=== PATIENT | female | born 1995 | race Caucasian/White ===

== ENCOUNTER 2017-06-25 13:09 | Emergency (ER) | payer BC, SELFPAY ==
[2017-06-25 13:17] VITALS: BP 130/61; PULSE 95; RESP 18; TEMP 36.6; O2SAT 100; BMI 21.6
[2017-06-25 13:32] LABS: UTC Influenza A Antigen Negative (Negative); UTC Influenza B Antigen Negative (Negative)
--- NOTE | 2017-06-25 13:50 | HMH.EDUTC ---
[facility] [place]ression: Viral illness Disposition: Home, Self-Care Condition on Discharge: Good Instructions: DI for Viral Upper Respiratory Infection -- Adult, DI for Viral Gastroenteritis -- Adult Additional Instructions: * No sign of bacterial infection. Likely viral. Virus can take 7-14 days to run their course * Monitor Temp. Tylenol every 4 hours as needed no more then 5 times a day or 4000mg in 24 hours and/or ibuprofen every 6 hours as needed no more then 3200mg in 24 hours (as long as your primary care doctor has told you that it is ok to take both) for fever/aches/pain. ER if fever no less than 101 despite tylenol and ibuprofen * Encourage fluids, water, gatorade, powerade, pedialyte if /toddler/child * warm salt water gargles * warm fluids * sore throat lozenges * sleep elevated * humidifier/vaporizer * * Your throat swab was sent for culture. Those results are typically sent to your primary care. Be sure to follow up in 2-3 days if no improvement so they can review those results and treat if necessary. If you don't have primary care, I recommend you get one but in the mean time, you will have to return to a walk in clinic. * Increase fluids. Water, gatorade, powerade, juice OR pedialyte with limited formula/dairy in children. * No food is ok as long as you or your child is drinking. Once ready to eat, start bland. bananas, rice, applesauce, toast * Contagious until no diarrhea, vomiting, fever x 24 hours without medication * Avoid anti-diarrheals unless told otherwise. Best to let the virus run its course. Follow up with primary care IMMEDIATELY for new or worsening symptoms OR no noticeable improvement over the next 48-72 hours. 911 for difficulty breathing or swallowing. Prescriptions: Ondansetron [Zofran 4mg ODT] 4 mg PO TID PRN #10 tab.rapdis PRN Reason: Nausea And Vomiting Time of Disposition: 14:16 Medical Decision Making Vital Signs: 06/25/17 13:17 Temperature 98 F Temperature Source Temporal Artery Scan Pulse Rate [Right] 95 H Respiratory Rate 18 Blood Pressure [Right Arm] 130/61 Blood Pressure Mean [Right Arm] 84 Blood Pressure Source [Right Arm] Automatic Cuff Blood Pressure Position [Right Arm] Sitting 02 Sat by Pulse Oximetry 100 Oxygen Delivery Method Room Air - Lab Data Lab Results 06/25/17 13:31: Influenza Type A Ag Negative, Influenza Type B Ag Negative Strep negative - Rudy Inquiry Pt receiving controlled substance: No [facility] [place] - General Stated complaint: v/d jain Time Seen by Provider: 06/25/17 13:45 Mode of Arrival: Ambulatory Source of Information: Patient Limitations: No Limitations Description of Symptoms (Recalled from Triage Doc. by RN): COUGH, HEADACHE, VOMITING X3 DAYS HEENT Symptoms (Recalled from RN notes): Yes Resp Symptoms (Recalled from RN notes): No Skin Symptoms (Recalled from RN notes): No MS Symptoms (Recalled from RN notes): No Functional Status (Recalled from RN notes): N - History of Present Illness Provider Complaint: c/o sore throat, cough, nasal congestion, rhinorrhea, PND starting 3-4 days ago. This morning N/V/D. Vomited twice and diarrhea twice. Son w/ bronchitis. Pt denies SOA, wheezing. Tylenol helps w/ aches but nothing else. Hasn't taken or tried anything else. - Related Data Previous Rx's Medication Instructions Recorded Ondansetron [Zofran 4mg ODT] 4 mg PO TID PRN #10 tab.rapdis 06/25/17 Allergies Allergy/AdvReac Type Severity Reaction Status Date / Time estradiol [ESTRADIOL] Allergy Unknown Unverified 06/05/17 14:56 ethinyl estradiol Allergy Unknown Unverified 06/05/17 14:56 [From ORTHO EVRA] norelgestromin Allergy Unknown Verified 06/25/17 13:24 [From ORTHO EVRA] - Worker's Comp Is this a Worker's Comp case?: No [facility] History I have reviewed the patient's past medical history: Yes (denies pertinent hx) Medical History: Denies:: Diabetes Mellitus Type 1, Diabetes
--- NOTE | 2017-06-25 13:54 | ED_ITS ---
[facility] [place] Clinical Impression: Viral illness Disposition: Home, Self-Care Condition on Discharge: Good Instructions: DI for Viral Upper Respiratory Infection -- Adult, DI for Viral Gastroenteritis -- Adult Additional Instructions: * No sign of bacterial infection. Likely viral. Virus can take 7-14 days to run their course * Monitor Temp. Tylenol every 4 hours as needed no more then 5 times a day or 4000mg in 24 hours and/or ibuprofen every 6 hours as needed no more then 3200mg in 24 hours (as long as your primary care doctor has told you that it is ok to take both) for fever/aches/pain. ER if fever no less than 101 despite tylenol and ibuprofen * Encourage fluids, water, gatorade, powerade, pedialyte if /toddler/ child * warm salt water gargles * warm fluids * sore throat lozenges * sleep elevated * humidifier/vaporizer * * Your throat swab was sent for culture. Those results are typically sent to your primary care. Be sure to follow up in 2-3 days if no improvement so they can review those results and treat if necessary. If you don't have primary care , I recommend you get one but in the mean time, you will have to return to a walk in clinic. * Increase fluids. Water, gatorade, powerade, juice OR pedialyte with limited formula/dairy in children. * No food is ok as long as you or your child is drinking. Once ready to eat, start bland. bananas, rice, applesauce, toast * Contagious until no diarrhea, vomiting, fever x 24 hours without medication * Avoid anti-diarrheals unless told otherwise. Best to let the virus run its course. Follow up with primary care IMMEDIATELY for new or worsening symptoms OR no noticeable improvement over the next 48-72 hours. 911 for difficulty breathing or swallowing. Prescriptions: Ondansetron [Zofran 4mg ODT] 4 mg PO TID PRN #10 tab.rapdis PRN Reason: Nausea And Vomiting Time of Disposition: 14:16 Medical Decision Making Vital Signs: 06/25/17 13:17 Temperature 98 F Temperature Source Temporal Artery Scan Pulse Rate [Right] 95 H Respiratory Rate 18 Blood Pressure [Right Arm] 130/61 Blood Pressure Mean [Right Arm] 84 Blood Pressure Source [Right Arm] Automatic Cuff Blood Pressure Position [Right Arm] Sitting 02 Sat by Pulse Oximetry 100 Oxygen Delivery Method Room Air - Lab Data Lab Results 06/25/17 13:31: Influenza Type A Ag Negative, Influenza Type B Ag Negative Strep negative - Rudy Inquiry Pt receiving controlled substance: No [facility] [place] HPI - General Stated complaint: v/d jain Time Seen by Provider: 06/25/17 13:45 Mode of Arrival: Ambulatory Source of Information: Patient Limitations: No Limitations Description of Symptoms (Recalled from Triage Doc. by RN): COUGH, HEADACHE, VOMITING X3 DAYS HEENT Symptoms (Recalled from RN notes): Yes Resp Symptoms (Recalled from RN notes): No Skin Symptoms (Recalled from RN notes): No MS Symptoms (Recalled from RN notes): No Functional Status (Recalled from RN notes): N - History of Present Illness Provider Complaint: c/o sore throat, cough, nasal congestion, rhinorrhea, PND starting 3-4 days ago. This morning N/V/D. Vomited twice and diarrhea twice. Son w/ bronchitis. Pt denies SOA, wheezing. Tylenol helps w/ aches but nothing else. Hasn't taken or tried anything else. - Related Data Previous Rx's Medication Instructions Recorded Ondansetron [Zofran 4mg ODT] 4 mg PO TID PRN #10 tab.[email or web address] 06/25/17
[2017-06-25 14:18] LABS: UTC Strep Screen (Rapid) Negative (Negative)
== END 2017-06-25 14:25 | disposition home or self-care (01) ==
PROVIDERS: Nurse Practitioner Family; Emergency Provider General Practice; Family Provider Emergency Medicine
DX: A08.4 Viral intestinal infection, unspecified (principal)
CPT/HCPCS: 87275; 87276; 87804; 87880; 99202

== ENCOUNTER 2017-07-04 21:23 | Emergency (ER) | payer BC, SELFPAY ==
[2017-07-04 21:29] VITALS: BP 119/75; PULSE 94; RESP 18; TEMP 36.7; O2SAT 100; BMI 22.1
--- NOTE | 2017-07-04 21:38 | HMH.EDHA ---
ED Disposition Clinical Impression: Headache Qualifiers: Headache type: unspecified Headache chronicity pattern: acute headache Intractability: not intractable Qualified Code(s): R51 - Headache Disposition: Home, Self-Care Condition on Discharge: Good Instructions: DI for Headache Additional Instructions: call pcp as needed Referrals: Herve Loyola MD [Primary Care Provider] - - Critical Care Critical Care Time: No Attestation: On 07/04/17, the high probability of a clinically significant, sudden or life threatening deterioration of the following system(s) required my full and direct attention, intervention and personal management. The time I documented below is in addition to time spent performing reported procedures but includes the following listed in this critical care notation. Medical Decision Making - Medical Records Medical records reviewed: Yes: I reviewed the patient's medical records. Vital Signs: 07/04/17 21:29 Temperature 98.0 F Temperature Source Oral Pulse Rate [Right Radial] 94 H Respiratory Rate 18 Blood Pressure [Right Arm] 119/75 Blood Pressure Mean [Right Arm] 89 02 Sat by Pulse Oximetry 100 Oxygen Delivery Method Room Air - Rudy Inquiry Pt receiving controlled substance: No Headache HPI - General Chief Complaint: Headache Stated Complaint: jain Time Seen by Provider: 07/04/17 21:38 Mode of Arrival: Ambulatory Source of Information: Patient, Medical Record Limitations: No Limitations Description of Symptoms (Recalled from ER Triage Doc. by RN): PT REPORTS MIGRAINE WITH OCCSIONAL NOSE BLEED. REPORTS IT HAS BEEN INTERMITTENT SINCE THE . PT REPORTS CONGESTION AND PRESSURE IN HER HEAD. - History of Present Illness HPI Narrative: this is a 1 day hx of bitemp jain w/o fever or rash and no trauma or neuro sx - similiar jain in past MD Complaint: migraine Onset (ago): day(s) Onset description: gradual Location: temporal Severity: moderate Quality: similar to previous headaches Exacerbating factors: none Associated symptoms: nausea Treatments prior to arrival: none - Related Data Home Medications Medication Instructions Recorded Confirmed No Known Home Medications [No 07/04/17 07/04/17 Known Home Medications] Allergies Allergy/AdvReac Type Severity Reaction Status Date / Time estradiol [ESTRADIOL] Allergy Unknown Verified 07/04/17 21:41 ethinyl estradiol Allergy Unknown Verified 07/04/17 21:41 [From ORTHO EVRA] norelgestromin Allergy Unknown Verified 01/17/18 21:41 [From ORTHO EVRA] [facility] History I have reviewed the patient's past medical history: Yes Medical History: Denies:: Diabetes Mellitus Type 1, Diabetes Mellitus Type 2, Hypertension Other Surgeries: Yes: , Other (hernia) - *Social History Smoking Status: Current every day smoker Tobacco Type: cigarettes Alcohol Intake: current Alcohol Intake Frequency:: holidays/special occasions only - Psychiatric History Expresses thoughts of harming self/others: None Suicide Plan Description: No Plan ROS Obtained: Yes All systems reviewed & no additional complaints - Constitutional Constitutional: Denies fever(s) - Eyes Eyes: Denies change in vision - ENT Ears, Nose, Mouth, and Throat: Denies sore throat - Cardiovascular Cardiovascular: Denies chest pain at rest - Gastrointestinal Gastrointestingal: Reports: nausea - Musculoskeletal Musculoskeletal: Denies joint pain - Integumentary/Breasts Skin/Breast: Denies rash - Neurologic Neurologic: Denies loss of vision, Denies seizure-like activity Physical Exam - General General appearance: alert, in no apparent distress - Head Head exam: atraumatic - Eye Eye exam: Present: PERRL, EOMI - ENT ENT exam: Present: mucous membranes dry - Neck Neck exam: Present: full ROM - Respiratory Respiratory exam: Absent: respiratory distress - Cardiovascular Cardiovascular exam: Present: regular
--- NOTE | 2017-07-04 21:42 | ED_ITS ---
ED Disposition Clinical Impression: Headache Qualifiers: Headache type: unspecified Headache chronicity pattern: acute headache Intractability: not intractable Qualified Code(s): R51 - Headache Disposition: Home, Self-Care Condition on Discharge: Good Instructions: DI for Headache Additional Instructions: call pcp as needed Referrals: Herve Loyola MD [Primary Care Provider] - - Critical Care Critical Care Time: No Attestation: On 07/04/17, the high probability of a clinically significant, sudden or life threatening deterioration of the following system(s) required my full and direct attention, intervention and personal management. The time I documented below is in addition to time spent performing reported procedures but includes the following listed in this critical care notation. Medical Decision Making - Medical Records Medical records reviewed: Yes: I reviewed the patient's medical records. Vital Signs: 07/04/17 21:29 Temperature 98.0 F Temperature Source Oral Pulse Rate [Right Radial] 94 H Respiratory Rate 18 Blood Pressure [Right Arm] 119/75 Blood Pressure Mean [Right Arm] 89 02 Sat by Pulse Oximetry 100 Oxygen Delivery Method Room Air - Rudy Inquiry Pt receiving controlled substance: No Headache HPI - General Chief Complaint: Headache Stated Complaint: jain Time Seen by Provider: 07/04/17 21:38 Mode of Arrival: Ambulatory Source of Information: Patient, Medical Record Limitations: No Limitations Description of Symptoms (Recalled from ER Triage Doc. by RN): PT REPORTS MIGRAINE WITH OCCSIONAL NOSE BLEED. REPORTS IT HAS BEEN INTERMITTENT SINCE THE . PT REPORTS CONGESTION AND PRESSURE IN HER HEAD. - History of Present Illness HPI Narrative: this is a 1 day hx of bitemp jain w/o fever or rash and no trauma or neuro sx - similiar jain in past MD Complaint: migraine Onset (ago): day(s) Onset description: gradual Location: temporal Severity: moderate Quality: similar to previous headaches Exacerbating factors: none Associated symptoms: nausea Treatments prior to arrival: none - Related Data Home Medications Medication Instructions Recorded Confirmed No Known Home Medications [No 07/04/17 07/04/17 Known Home Medications] Allergies Allergy/AdvReac Type Severity Reaction Status Date / Time estradiol [ESTRADIOL] Allergy Unknown Verified 07/04/17 21:41 ethinyl estradiol Allergy Unknown Verified 07/04/17 21:41 [From ORTHO EVRA] norelgestromin Allergy Unknown Verified 01/17/18 21:41 [From ORTHO EVRA] [facility] History I have reviewed the patient's past medical history: Yes Medical History: Denies:: Diabetes Mellitus Type 1, Diabetes Mellitus Type 2, Hypertension Other Surgeries: Yes: , Other (hernia) - *Social History Smoking Status: Current every day smoker Tobacco Type: cigarettes Alcohol Intake: current Alcohol Intake Frequency:: holidays/special occasions only - Psychiatric History Expresses thoughts of harming self/others: None Suicide Plan Description: No Plan ROS Obtained: Yes All systems reviewed & no additional complaints - Constitutional Constitutional: Denies fever(s) - Eyes Eyes: Denies change in vision - ENT Ears, Nose, Mouth, and Throat: Denies sore throat - Cardiovascular
--- NOTE | 2017-07-04 22:02 | PC.NURSE ---
PT TRYING TO FIND A RIDE HOME
== END 2017-07-04 22:32 | disposition home or self-care (01) ==
PROVIDERS: Emergency Provider Emergency Medicine; Family Provider Emergency Medicine; PCP Emergency Medicine
DX: R51 Headache (principal); F17.210 Nicotine dependence, cigarettes, uncomplicated
CPT/HCPCS: 96372; 99281; 99282

== ENCOUNTER → 2017-09-06 13:46 | Outpatient (CLI) | payer BC, SELFPAY ==
[2017-09-11 06:29] LABS: Neisseria gonorrhoeae, NAA Negative (Negative)
== END ==
PROVIDERS: Family Provider Emergency Medicine; PCP Emergency Medicine; Visit Provider Nurse Practitioner Obstetrics & Gynecology
DX: R10.9 Unspecified abdominal pain (principal)
CPT/HCPCS: 87491; 87591

== ENCOUNTER → 2017-11-22 11:31 | Outpatient (REF) | payer BC, SELFPAY | LOC: LAB 11:31 | PROVIDERS: Visit Provider Nurse Practitioner Family | DX: N93.9 Abnormal uterine and vaginal bleeding, unspecified (principal) | CPT/HCPCS: 87086 ==

== ENCOUNTER → 2018-08-15 11:46 | Outpatient (CLI) | payer BC, SELFPAY ==
[2018-08-15 13:33] LABS: Free Thyroxine Index 1.9 ug/dL (5.93-13.13); T4 (Thyroxine) 5.5 ug/dl (4.7-13.3); Thyroid Stimulating Hormone 2.27 uIU/ml (0.358-3.740); Triiodothryronine (T3) Uptake 34 % (31-39)
[2018-08-16 07:15] LABS: HIV Screen 4th Generation wRfx Non Reactive (Non Reactive)
[2018-08-16 08:26] LABS: Hep A Ab, IgM Negative (Negative); Hepatitis B Core Antibody IgM Negative (Negative); Hepatitis B Surface Antigen Negative (Negative)
[2018-08-16 12:36] LABS: Hepatitis C Antibody <0.1 s/co ratio (0.0-0.9)
[2018-08-16 12:37] LABS: Rapid Plasma Reagin Ab Titer Non Reactive (NonRea<1:1); Triiodothyronine (T3) Free 3.2 pg/mL (2.0-4.4)
[2018-08-16 17:40] LABS: HSV 1 IgG, Type Spec 9.08 index (0.00-0.90); HSV 2 IgG Supplemental Testing Positive (Negative)
== END ==
PROVIDERS: Visit Provider Nurse Practitioner Obstetrics & Gynecology
DX: Z72.51 High risk heterosexual behavior (principal); N92.6 Irregular menstruation, unspecified; R53.83 Other fatigue; Z83.49 Family history of other endocrine, nutritional and metabolic diseases
CPT/HCPCS: 36415; 80074; 84436; 84443; 84479; 84481; 86592; 86695; 86703; 86790; G0432

== ENCOUNTER 2021-06-21 14:48 | Emergency (ER) | payer BC, SELFPAY ==
[2021-06-21 14:49] VITALS: BP 105/71; PULSE 99; RESP 15; TEMP 36.7; O2SAT 98; BMI 22.6
--- NOTE | 2021-06-21 15:24 | HMH.EDGENADL ---
ED Disposition Clinical Impression: COVID-19 Migraine Qualifiers: Migraine type: without aura Status migrainosus presence: without status migrainosus Intractability: not intractable Qualified Code(s): G43.009 - Migraine without aura, not intractable, without status migrainosus Disposition: Home, Self-Care Condition on Discharge: Good Instructions: DI for COVID-19 (Suspected or Confirmed ) Referrals: Herve Loyola MD [Primary Care Provider] - - Critical Care Critical Care Time: No Attestation: On 06/21/21, the high probability of a clinically significant, sudden or life threatening deterioration of the following system(s) required my full and direct attention, intervention and personal management. The time I documented below is in addition to time spent performing reported procedures but includes the following listed in this critical care notation. Medical Decision Making - Medical Records Medical records reviewed: Yes: I reviewed the patient's medical records. - Rudy Inquiry Pt receiving controlled substance: No Vital Signs: 06/21/21 14:49 Temperature 98.1 F Temperature Source Oral Pulse Rate [Right Radial] 99 H Respiratory Rate 15 Blood Pressure [Right Arm] 105/71 L Blood Pressure Mean [Right Arm] 82 Blood Pressure Source [Right Arm] Automatic Cuff Blood Pressure Position [Right Arm] Sitting 02 Sat by Pulse Oximetry 98 Oxygen Delivery Method Room Air - Lab Data Lab Results 06/21/21 15:25: WBC 3.4 L, RBC 4.20, Hgb 13.2, Hct 40.1, MCV 95.5, MCH 31.4 H, MCHC 32.9, RDW 12.8, Plt Count 211, MPV 8.8, Neut % (Auto) 69.3, Lymph % (Auto) 22.8, Sherman % (Auto) 7.0, Eos % (Auto) 0.1, Baso % (Auto) 0.7, Neut # (Auto) 2.3, Lymph # (Auto) 0.8, Sherman # (Auto) 0.2, Eos # (Auto) 0.0, Baso # (Auto) 0.0 06/21/21 15:25: Sodium 137, Potassium 3.6, Chloride 104, Carbon Dioxide 26, Anion Gap 10.6, BUN 5 L, Creatinine 0.80, Estimated Creat Clear 107, Estimated GFR 87, Est GFR ( Amer) 105, Glucose 112 H, Calcium 8.9, Total Bilirubin 0.3, AST 26, ALT 22, Alkaline Phosphatase 42, Total Protein 6.9, Albumin 4.4, Globulin 2.5, Albumin/Globulin Ratio 1.8 06/21/21 15:25: SARS-CoV-2 (PCR) Detected A, Influenza A Untype (PCR) Not detected, Influenza Type B (PCR) Not detected Result diagrams: 06/21/21 15:25 06/21/21 15:25 Orders (Tests/Meds): ED MEDICATIONS Discontinued Medications Generic Name Dose Route Start Last Admin Trade Name Freq PRN Reason Stop Dose Admin Diphenhydramine HCl 25 mg 06/21/21 15:06 06/21/21 15:33 Diphenhydramine 50mg/Ml Vial IV 06/21/21 15:07 25 mg ONCE ONE Administration Sodium Chloride 1,000 mls @ 999 mls/hr 06/21/21 15:15 06/21/21 15:33 Sod Chlor 0.9% 1000ml Bag IV 06/21/21 16:15 999 mls/hr .Q1H1M ISIDRO Administration Ketorolac Tromethamine 30 mg 06/21/21 15:06 06/21/21 15:33 Ketorolac 30mg/Ml Vial IV 06/21/21 15:07 30 mg ONCE ONE Administration Ondansetron HCl 4 mg 06/21/21 15:06 06/21/21 15:33 Ondansetron 4mg/2ml Vial IV 06/21/21 15:07 4 mg ONCE ONE Administration - Reevaluation(s) Time: 16:50 Reevaluation #1: On reevaluation, the patient is feeling much better. She was positive for Covid. She has no respiratory distress or desaturations. Not requiring supplemental oxygen. Patient was given quarantine guidelines per current CDC recommendations. She is to follow-up with PCP in 48 hours. Given strict return precautions. Verbalized understanding. Medical Decision Narrative: 25-year-old female presented to the emergency department with some headache congestion and subjective fevers. Overall patient appears hemodynamically stable. No meningismus. Findings consistent with sinus headache likely from upper respiratory infection. Work-up initiated. General Adult HPI - General Chief complaint: Headache Stated complaint: fever, h/a Time Seen by Provider: 06/21/21 15:00 Mode of Arrival: Ambulatory Limitations: No Limitation
[2021-06-21 15:35] LABS: Influenza A, PCR Not Detected (NotDetected); Influenza B, PCR Not Detected (NotDetected)
[2021-06-21 15:38] LABS: Basophils % 0.7 % (0.1-2.0); Eosinophils % 0.1 % (0.1-12.0); Hematocrit 40.1 % (37.0-47.0); Hemoglobin 13.2 g/dL (12.2-16.2); Lymphocytes # 0.8 K/mm3 (0.7-4.5); Lymphocytes % 22.8 % (10-50); Mean Corpuscular HGB Conc 32.9 g/dL (31.8-35.4); Mean Corpuscular Hemoglobin 31.4 pg (27.0-31.2); Mean Corpuscular Volume 95.5 fl (81-99); Mean Platelet Volume 8.8 fl (7.4-10.4); Monocytes # 0.2 K/mm3 (0.1-1.0); Neutrophils # 2.3 K/mm3 (1.8-7.8); Neutrophils % 69.3 % (37.0-80.0); Platelet Count 211 K/mm3 (142-424); Red Cell Distribution Width 12.8 % (11.5-17.5); White Blood Count 3.4 K/mm3 (4.8-10.8)
[2021-06-21 15:53] LABS: Alanine Aminotransferase 22 U/L (12-78); Albumin Level 4.4 g/dl (3.5-5.0); Albumin/Globulin Ratio 1.8 (1.1-1.8); Alkaline Phosphatase 42 U/L (38-126); Anion Gap 10.6 mEq/L (5-15); Aspartate Amino Transferase 26 U/L (14-36); Bilirubin,Total 0.3 mg/dl (0.2-1.3); Blood Urea Nitrogen 5 mg/dl (7-17); Calcium 8.9 mg/dl (8.4-10.2); Carbon Dioxide 26 mmol/L (22.0-30.0); Chloride 104 mmol/L (98-107); Creatinine Clearance Estimated 107 mL/min (50-200); Estimated Glomerular Filt Rate 87 ml/min (>60); GFR (African American) 105 ML/MIN (>60); Globulin 2.5 g/dL (1.3-3.2); Glucose 112 mg/dl (74-100); Potassium 3.6 mmoL/L (3.5-5.1); Sodium 137 mmol/L (136-145); Total Protein,Serum 6.9 g/dl (6.3-8.2)
[2021-06-21 16:17] LABS: Coronavirus 19, PCR Detected (NotDetected)
[2021-06-21 17:09] VITALS: BP 98/69; PULSE 91; RESP 14; TEMP 36.8; O2SAT 99
== END 2021-06-21 17:09 | disposition home or self-care (01) ==
PROVIDERS: Emergency Provider Emergency Medicine; PCP Emergency Medicine
DX: U07.1 COVID-19 (principal); G43.009 Migraine without aura, not intractable, without status migrainosus
CPT/HCPCS: 80053; 85025; 96365; 96375; 99282; C9803; J2405; U0003; U0005

== ENCOUNTER 2021-09-05 12:56 | Emergency (ER) | payer BC, SELFPAY ==
--- NOTE | 2021-09-05 15:17 | HMH.EDUTC ---
[facility] [place] Disposition Clinical Impression: Viral gastroenteritis Disposition: Home, Self-Care Condition on Discharge: Good Instructions: Viral Gastroenteritis, DI for Viral Gastroenteritis -- Adult Additional Instructions: Drink plenty of fluids. Take tylenol or ibuprofen for pain or fever. Take the medications as directed. Follow up with your regular doctor. GO TO THE ER FOR ANY WORSENING SYMPTOMS Prescriptions: Ondansetron [Zofran 4mg ODT] 4 mg PO Q8HP PRN #20 tab PRN Reason: Nausea Transmission Status: Received by [facility] Referrals: Herve Loyola MD [Primary Care Provider] - Forms: Work/School Release Time of Disposition: 15:57 Medical Decision Making - Medical Records Medical records reviewed: No: I reviewed the patient's medical records. - Rudy Inquiry Pt receiving controlled substance: No Vital Signs: 09/05/21 15:38 09/05/21 16:15 Temperature 98.4 F 98.4 F Temperature Source Oral Oral Pulse Rate 81 Pulse Rate [Left Radial] 85 Respiratory Rate 17 17 Blood Pressure 121/64 Blood Pressure [Right Arm] 120/70 Blood Pressure Mean [Right Arm] 86 Blood Pressure Source [Right Arm] Automatic Cuff Blood Pressure Position [Right Arm] Sitting 02 Sat by Pulse Oximetry 100 Oxygen Delivery Method Room Air Room Air - Lab Data Lab results reviewed: Yes: I reviewed the patient's lab results. Lab Results 09/05/21 15:48: Strep Scn Rapid Clinic Negative Orders (Tests/Meds): ORDERS Category Date Time Status Strep Screen Confirmation Stat Micro 09/05/21 15:48 Received [facility] [place] HPI - General Stated complaint: vomiting,diarrhea,achey Time Seen by Provider: 09/05/21 15:17 - History of Present Illness Provider Complaint: She states that she has had nausea, vomiting and diarhhea since yesterday. - Related Data Previous Rx's Medication Instructions Recorded Ibuprofen [Ibuprofen 600mg 600 mg PO Q6HP PRN #30 tab 08/03/19 Tablet] Methocarbamol [Robaxin 500mg Tab] 500 mg PO BIDP PRN #30 tab 08/03/19 Ondansetron [Zofran 4mg ODT] 4 mg PO Q8HP PRN #20 tab 03/21/22 Allergies Allergy/AdvReac Type Severity Reaction Status Date / Time estradiol [ESTRADIOL] Allergy Unknown Verified 06/04/19 16:08 ethinyl estradiol Allergy Unknown Verified 06/04/19 16:08 [From ORTHO EVRA] norelgestromin Allergy Unknown Verified 06/04/19 16:08 [From ORTHO EVRA] [facility] History - Hepatitis A Screen Attestation statement:: This patient has been screened for Hepatitis A risk factors. I have reviewed the patient's past medical history: Yes Medical History: Reports:: Asthma Denies:: Cancer, Diabetes Mellitus Type 1, Diabetes Mellitus Type 2, Hypertension, MRSA Other Surgeries: Yes: , Other Amputation: No Fractures: No - Social History Smoking Status: Current every day smoker Tobacco Type: cigarettes # Packs/Day (cigarettes): 1 Alcohol Intake: never Alcohol Intake Frequency:: holidays/special occasions only Substance Use Type: denies use Occupational Status: other Housing: house Household Members: children, family Family Hx:: Cancer, Asthma Comment: crohns,arthritis ROS Obtained: Yes All systems reviewed & no additional complaints - Constitutional Constitutional: Reports chills, Denies fever(s), Denies poor appetite, Denies malaise - Eyes Eyes: Denies eye discharge - ENT Ears, Nose, Mouth, and Throat: Denies dizziness, Denies otalgia, Denies sore throat - Cardiovascular Cardiovascular: Denies chest pain - Gastrointestinal Gastrointestingal: Reports: as per HPI - Genitourinary Female Genitourinary: Denies dysuria, Denies urinary incontinence, Denies urinary hesitancy, Denies urinary urgency, Denies vaginal discharge - Musculoskeletal Musculoskeletal: Denies joint pain - Integumentary/Breasts Skin/Breast: Denies rash Physical Exam - General General appearance: alert, in no apparent distress
[2021-09-05 15:38] VITALS: BP 120/70; PULSE 85; RESP 17; TEMP 36.9; O2SAT 100; BMI 22.6
[2021-09-05 15:59] LABS: UTC Strep Screen (Rapid) Negative (Negative)
[2021-09-05 16:15] VITALS: BP 121/64; PULSE 81; RESP 17; TEMP 36.9; O2SAT 100
== END 2021-09-05 16:16 | disposition home or self-care (01) ==
PROVIDERS: Emergency Provider Nurse Practitioner Family; PCP Emergency Medicine
DX: A08.4 Viral intestinal infection, unspecified (principal)
CPT/HCPCS: 87880; 99212; G0463

== ENCOUNTER 2021-09-12 08:37 | Emergency (ER) | payer BC, SELFPAY ==
[2021-09-12 08:39] VITALS: BP 131/87; PULSE 75; RESP 16; TEMP 36.7; O2SAT 99; BMI 22.6
--- NOTE | 2021-09-12 08:57 | HMH.EDGENADL ---
ED Disposition Clinical Impression: Viral illness Disposition: Home, Self-Care Condition on Discharge: Good Instructions: DI for Viral Syndrome Additional Instructions: Please follow up with your primary care physician in 2-3 days for further management. Please take the zofran every 8hours for 2 days and then as needed. Please continue to drink plenty of water and eat 3 balanced meals. Please return to the ED for any concerning symptoms such as inability to eat and drink, difficulty breathing, lethargy, confusion or any other concerns. Prescriptions: Ondansetron [Zofran 4mg ODT] 4 mg PO TIDP PRN #20 tab PRN Reason: Nausea Transmission Status: Received by [facility] Referrals: Herve Loyola MD [Primary Care Provider] - Time of Disposition: 09:30 - Critical Care Critical Care Time: No Attestation: On 09/12/21, the high probability of a clinically significant, sudden or life threatening deterioration of the following system(s) required my full and direct attention, intervention and personal management. The time I documented below is in addition to time spent performing reported procedures but includes the following listed in this critical care notation. Medical Decision Making - Medical Records Medical records reviewed: Yes: I reviewed the patient's medical records. - Rudy Inquiry Pt receiving controlled substance: No Vital Signs: 09/12/21 08:39 09/12/21 09:00 Temperature 98.1 F Temperature Source Oral Pulse Rate 70 Pulse Rate [Right] 75 Respiratory Rate 16 18 Blood Pressure 118/76 Blood Pressure [Right Arm] 131/87 Blood Pressure Mean 90 Blood Pressure Mean [Right Arm] 101 Blood Pressure Source [Right Arm] Automatic Cuff Blood Pressure Position [Right Arm] Sitting 02 Sat by Pulse Oximetry 99 99 Oxygen Delivery Method Room Air - Lab Data Lab results reviewed: Yes: I reviewed the patient's lab results. Orders (Tests/Meds): ED MEDICATIONS Discontinued Medications Generic Name Dose Route Start Last Admin Trade Name Freq PRN Reason Stop Dose Admin Ondansetron HCl 4 mg 09/12/21 08:50 09/12/21 08:57 Ondansetron 4mg Odt SL 09/12/21 08:51 4 mg ONCE ONE Administration ORDERS Category Date Time Status Rapid PCR Covid and Flu A/B Stat Lab 09/12/21 08:55 Received Medical Decision Narrative: Miss Linton is a 25 yo female w/ no significant PMH who presents to the ED due to concern for flu, symptom onset yesterday described as Nausea, headache, lightheaded, fever and flu exposure (daughter). Patient is afebrile and hemodynamically stable on arrival. Physical exam patient is non toxic appearing. No clinical signs of dehydration. Moist mucous membranes, good skin turgor and cap refill<2. Otherwise benign exam. Patient currently on menses and denies any other concerning symptoms for will not investigate further. Patient likely has virla mediated illness given current clinical picture. Patient is given zofran and po challenged successfully. Patient instructed to fu w/ pcp in 2-3 d and is provided script for zofran. Patient informed to return if unable to tolerate Po, symptoms that don't improve, chest pain, dyspnea, lethargy or any other concerns. General Adult HPI - General Stated complaint: RIDLEY, dizzy, fever, possible dehydration Time Seen by Provider: 09/12/21 08:55 Mode of Arrival: Ambulatory Source of Information: Patient Limitations: No Limitations Description of Symptoms (Recalled from ER Triage Doc. by RN): Pt advises her daughter has had the flu all week and she woke up feeling bad yesterday. C/O having a headache and feeling nauseated - History of Present Illness HPI narrative: Mrs. Linton is a 25-year-old female with no significant past medical history who presents to the emergency department due to fever, nausea and concern for flu. Patient reports her daughter was recently diagnosed with the flu on . Patient pre
[2021-09-12 09:00] VITALS: BP 118/76; PULSE 70; RESP 18; O2SAT 99
[2021-09-12 09:09] LABS: Coronavirus 19, PCR Not Detected (NotDetected); Influenza B, PCR Not Detected (NotDetected)
[2021-09-12 09:37] VITALS: BP 118/76; PULSE 82; RESP 20; TEMP 36.7; O2SAT 99
[2021-09-12 09:44] LABS: Influenza A, PCR Detected (NotDetected)
== END 2021-09-12 09:38 | disposition home or self-care (01) ==
PROVIDERS: Emergency Provider Student in an Organized Health Care Education/Training Program; PCP Emergency Medicine
DX: J10.1 Influenza due to other identified influenza virus with other respiratory manifestations (principal); B34.9 Viral infection, unspecified; R42 Dizziness and giddiness; R51.9 Headache, unspecified; J45.909 Unspecified asthma, uncomplicated; F17.210 Nicotine dependence, cigarettes, uncomplicated; Z20.822 Contact with and (suspected) exposure to COVID-19; Z88.8 Allergy status to other drugs, medicaments and biological substances; Z82.5 Family history of asthma and other chronic lower respiratory diseases; Z80.9 Family history of malignant neoplasm, unspecified
CPT/HCPCS: 99283; C9803; U0003; U0005

== ENCOUNTER 2022-04-25 17:27 | Emergency (ER) | payer BC, SELFPAY ==
[2022-04-25 18:50] VITALS: BP 113/71; PULSE 64; RESP 18; TEMP 36.8; O2SAT 100; BMI 23.3
--- NOTE | 2022-04-25 19:21 | EXP.UTC ---
Discharge Plan Disposition Patient Disposition: Home, Self-Care Condition: Good Prescriptions Prescriptions: No Action ibuprofen 600 MG tablet 600 mg PO Q6HP PRN (Reason: Mild Pain) Qty: 30 0RF methocarbamol 500 MG tablet 500 mg PO BIDP PRN (Reason: Muscle Spasm) Qty: 30 0RF ondansetron 4 MG tablet,disintegrating 4 mg PO Q8HP PRN (Reason: Nausea) Qty: 20 0RF ondansetron 4 MG tablet,disintegrating 4 mg PO TIDP PRN (Reason: Nausea) Qty: 20 0RF Referrals Follow up/Referrals: Herve Loyola MD [Primary Care Provider] - See instructions Activity Restrictions/Add. Instructions Additional Instructions/Restrictions: *Monitor Temp, Over the counter Motrin or Tylenol as directed/as needed Tylenol every 4 hours and Motrin every 6 hours (as long as your family doctor has told you that you can take it) for fever or pain. and straight to ER if unable to lower temp less than 101.0 after medication given *Warm salt water gargles may help to soothe the throat *Throat Lozenges? *Warm fluids like tea with honey may help to soothe the throat? *Sleep elevated *Humidifier/Vaporizer Follow up IMMEDIATELY for new or worsening symptoms or no Noticeable improvement over the next 48-72 hours. 911 for difficulty breathing or swallowing You were tested for today for COVID19 your test result should be back in the next 24-48 hours, you may check your results on the [facility] Clinical Impressions Clinical Impression: Exposure to COVID-19 virus Stand Alone Forms Stand Alone Forms: Work/School Release Instructions Patient Instructions: Coronavirus Disease 2019, DI for Viral Syndrome Discharge ED [place]eni [place] [facility] [place] General Stated complaint: Exposed RIDLEY Mode of Arrival: Ambulatory Source of Information: Patient Limitations: No Limitations Time Seen by Provider: 04/25/22 19:21 Description of Symptoms (Recalled from Triage Doc. by RN): PATIENT C/O HEADACHE AND LOSS OF APPETITE. RECENTLY EXPOSED TO COVID HEENT Symptoms (Recalled from RN notes): Yes Resp Symptoms (Recalled from RN notes): No Skin Symptoms (Recalled from RN notes): No MS Symptoms (Recalled from RN notes): No Functional Status (Recalled from RN notes): WNL History of Present Illness Provider Complaint: Patient states that she was around her co worker that just tested positive for COVID States that she hasnt been feeling well feeling achy and having a headache and today she has had some nausea so she wanted to get tested for COVID Related Data Previous Rx's Medication Instructions Recorded ibuprofen 600 mg tablet 600 mg PO Q6HP PRN Mild Pain #30 08/03/19 tabs methocarbamol 500 mg tablet 500 mg PO BIDP PRN Muscle Spasm 08/03/19 #30 tabs ondansetron 4 mg disintegrating 4 mg PO Q8HP PRN Nausea #20 tabs 09/05/21 tablet ondansetron 4 mg disintegrating 4 mg PO TIDP PRN Nausea #20 tabs 09/12/21 tablet Allergies Allergy/AdvReac Type Severity Reaction Status Date / Time estradiol [ESTRADIOL] Allergy Unknown Verified 06/04/19 16:08 ethinyl estradiol Allergy Unknown Verified 06/04/19 16:08 [From ORTHO EVRA] norelgestromin Allergy Unknown Verified 06/04/19 16:08 [From ORTHO EVRA] Worker's Comp Is this a Worker's Comp case?: No [facility] Medical History (Updated 04/25/22 @ 19:26 by Yeni Frederick APRN) Asthma Surgical History (Updated 04/25/22 @ 19:06 by Pily Almaraz RN) History of section Social History (Updated 04/25/22 @ 19:06 by Pily Almaraz RN) Smoking Status: Current every day smoker tobacco type: cigarettes packs per day: 1 second hand exposure: Yes alcohol intake: never substance use type: denies use current occupational status: other Travel in the last 8 weeks: None household members: family and children housing: house current occupational exposures/hazards: No ROS Obtained: Yes All systems reviewed & no tucker
[2022-04-25 19:30] VITALS: BP 113/71; PULSE 64; RESP 18; TEMP 36.8; O2SAT 100
== END 2022-04-25 19:38 | disposition home or self-care (01) ==
PROVIDERS: Emergency Provider Nurse Practitioner; PCP Emergency Medicine
DX: Z03.89 Encounter for observation for other suspected diseases and conditions ruled out (principal); R00.0 Tachycardia, unspecified; R51.9 Headache, unspecified; M62.838 Other muscle spasm; Z20.822 Contact with and (suspected) exposure to COVID-19; J45.909 Unspecified asthma, uncomplicated; F17.210 Nicotine dependence, cigarettes, uncomplicated; Z79.1 Long term (current) use of non-steroidal anti-inflammatories (NSAID); Z79.899 Other long term (current) drug therapy; Z88.8 Allergy status to other drugs, medicaments and biological substances
CPT/HCPCS: 99213; C9803; G0463; U0003; U0005

== ENCOUNTER 2023-02-23 10:32 | Emergency (ER) | payer BC, SELFPAY ==
[2023-02-23 10:32] VITALS: BP 118/73; PULSE 74; RESP 20; TEMP 36.7; O2SAT 100; BMI 20.3
--- NOTE | 2023-02-23 11:06 | EXP.UTC ---
Discharge Plan Disposition Patient Disposition: Home, Self-Care Condition: Good Prescriptions Prescriptions: New methylprednisolone [Medrol (Hima)] 4 mg tablets,dose pack See Rx Instructions .Route .COMPLEX 6 Days Qty: 21 0RF Rx Instructions: taper pack; ondansetron 4 mg tablet,disintegrating 4 mg PO Q8H PRN (Reason: nausea and vomiting) Qty: 10 0RF amoxicillin-pot clavulanate 875-125 mg Tablet 1 tab PO Q12H Qty: 14 0RF No Action ibuprofen 600 MG tablet 600 mg PO Q6HP PRN (Reason: Mild Pain) Qty: 30 0RF methocarbamol 500 MG tablet 500 mg PO BIDP PRN (Reason: Muscle Spasm) Qty: 30 0RF ondansetron 4 MG tablet,disintegrating 4 mg PO Q8HP PRN (Reason: Nausea) Qty: 20 0RF ondansetron 4 MG tablet,disintegrating 4 mg PO TIDP PRN (Reason: Nausea) Qty: 20 0RF Referrals Follow up/Referrals: Herve Loyola MD [Primary Care Provider] - See instructions Activity Restrictions/Add. Instructions Additional Instructions/Restrictions: *Monitor Temp, Over the counter Motrin or Tylenol as directed/as needed Tylenol every 4 hours and Motrin every 6 hours (as long as your family doctor has told you that you can take it) for fever or pain. and straight to ER if unable to lower temp less than 101.0 after medication given *Warm salt water gargles may help to soothe the throat *Throat Lozenges? *Warm fluids like tea with honey may help to soothe the throat? *Sleep elevated *Humidifier/Vaporizer Your throat swab was sent for culture. Those results are typically sent to your primary care. Be sure to follow up in 2-3 days with your family doctor/primary care physician if no improvement so they can review those result and treat if necessary. If you don?t have a primary care doctor, I recommend you get one but in the mean time, you will have to return to a walk in clinic Follow up IMMEDIATELY for new or worsening symptoms or no Noticeable improvement over the next 48-72 hours. 911 for difficulty breathing or swallowing You were tested for today for COVID19 your test result should be back in the next 24 hours You may check your results on the [facility] Portal if you are positive you will need to Quarantine for 5 days Clinical Impressions Clinical Impression: Sinusitis Qualifiers: Sinusitis location: unspecified location Chronicity: unspecified Qualified Code(s): J32.9 - Chronic sinusitis, unspecified Instructions Patient Instructions: Sinusitis, DI for Sinusitis [place]charge [place] [facility] [place] General Stated complaint: Sore throat, congestion, vomiting Mode of Arrival: Ambulatory Source of Information: Patient Limitations: No Limitations Time Seen by Provider: 02/23/23 11:06 Description of Symptoms (Recalled from Triage Doc. by RN): Patient reports sore throat, sinus issues and vomiting x 1 week. HEENT Symptoms (Recalled from RN notes): Yes Resp Symptoms (Recalled from RN notes): No Skin Symptoms (Recalled from RN notes): No MS Symptoms (Recalled from RN notes): No Functional Status (Recalled from RN notes): wnl History of Present Illness Provider Complaint: Patient states that her child recently had strep throat State that for the last week she has been having sore throat, sinus congestion and pressure, nausea and vomiting on and off States that today she wasnt feeling any better so she came in Related Data Previous Rx's Medication Instructions Recorded ibuprofen 600 mg tablet 600 mg PO Q6HP PRN Mild Pain #30 08/03/19 tabs methocarbamol 500 mg tablet 500 mg PO BIDP PRN Muscle Spasm 08/03/19 #30 tabs ondansetron 4 mg disintegrating 4 mg PO Q8HP PRN Nausea #20 tabs 09/05/21 tablet ondansetron 4 mg disintegrating 4 mg PO TIDP PRN Nausea #20 tabs 09/12/21 tablet amoxicillin 875 mg-potassium 1 tab PO Q12H #14 tabs 02/23/23 clavulanate 125 mg tablet methylprednisolone 4 mg tablets in See Rx Instructions .Route 02/23/23
[2023-02-23 11:13] LABS: UTC Strep Screen (Rapid) Negative (Negative)
[2023-02-23 11:22] VITALS: BP 118/73; PULSE 74; RESP 20; TEMP 36.7; O2SAT 100
== END 2023-02-23 11:35 | disposition home or self-care (01) ==
PROVIDERS: Emergency Provider Nurse Practitioner; PCP Emergency Medicine
DX: J01.90 Acute sinusitis, unspecified (principal); R11.2 Nausea with vomiting, unspecified; F17.210 Nicotine dependence, cigarettes, uncomplicated; J45.909 Unspecified asthma, uncomplicated
CPT/HCPCS: 87880; 99212; 99214; G0463

== ENCOUNTER 2023-06-08 15:17 | Emergency (ER) | payer OTHER, SELFPAY ==
[2023-06-08 16:15] VITALS: BP 110/86; PULSE 82; RESP 18; TEMP 37; O2SAT 99; BMI 22.4
--- NOTE | 2023-06-08 16:47 | EXP.UTC ---
Discharge Plan Disposition Patient Disposition: Home, Self-Care Condition: Good Prescriptions Prescriptions: New methylprednisolone [Medrol (Hima)] 4 mg tablets,dose pack See Rx Instructions .Route .COMPLEX 6 Days Qty: 21 0RF Rx Instructions: taper pack; amoxicillin-pot clavulanate 875-125 mg Tablet 1 tab PO Q12H 7 Days Qty: 14 0RF No Action fluconazole [Diflucan] 150 mg tablet 150 mg PO Q3D 0 Days Qty: 2 0RF Rx Instructions: may repeat second dose 72 hrs after first dose if symptoms persist Referrals Follow up/Referrals: Roxie Martinez APRN [Primary Care Provider] - See instructions Instructions Patient Instructions: DI for Sinusitis, Sinusitis Discharge ED Provider: Yeni Frederick [facility] General Stated complaint: headache, dizzy , runny nose Mode of Arrival: Ambulatory Source of Information: Patient Limitations: No Limitations Time Seen by Provider: 06/08/23 16:47 Description of Symptoms (Recalled from Triage Doc. by RN): PATIENT C/O SINUS CONGESTION, DIZZINESS, SORE THROAT AND EAR ACHE X 1 WEEK HEENT Symptoms (Recalled from RN notes): Yes Resp Symptoms (Recalled from RN notes): No Skin Symptoms (Recalled from RN notes): No MS Symptoms (Recalled from RN notes): No Functional Status (Recalled from RN notes): WNL History of Present Illness Provider Complaint: Patient states that she thinks she has a bad sinus infection States that she has been having sinus pain and pressure, drainage in the back of her throat sore throat and pain in her ears for over a week now so today when she was still not feeling any better she came in to get checked Related Data Previous Rx's Medication Instructions Recorded fluconazole 150 mg tablet 150 mg PO Q3D 2 doses #2 tabs 03/05/23 (Diflucan) amoxicillin 875 mg-potassium 1 tab PO Q12H 7 days #14 tabs 06/08/23 clavulanate 125 mg tablet methylprednisolone 4 mg tablets in See Rx Instructions .Route 06/08/23 a dose pack (Medrol (Hima)) .COMPLEX 6 days #21 tabs Allergies Allergy/AdvReac Type Severity Reaction Status Date / Time estradiol [ESTRADIOL] Allergy Unknown Verified 03/05/23 09:54 ethinyl estradiol Allergy Unknown Verified 03/05/23 09:54 [From ORTHO EVRA] norelgestromin Allergy Unknown Verified 03/05/23 09:54 [From ORTHO EVRA] Worker's Comp Is this a Worker's Comp case?: No [facility] Disclaimer: The information contained in this section may have been updated after the patient was seen, as this information can be updated by other users. Medical History Asthma Surgical History History of section Family History (Updated 03/05/23 @ 09:55 by Alex Lawson) Other No significant family history Social History Smoking Status: Current every day smoker tobacco type: cigarettes packs per day: 1 second hand exposure: Yes alcohol intake: never substance use type: denies use current occupational status: other Travel in the last 8 weeks: None household members: family and children housing: house current occupational exposures/hazards: No ROS Obtained: Yes All systems reviewed & no additional complaints except as documented and Yes Systems reviewed as appropriate & no additional complaints except as documented Constitutional Constitutional: Reports system reviewed and no additional complaints, except as documented, Reports as per HPI and Reports headache(s) ENT Ears, Nose, Mouth, and Throat: Reports system reviewed and no additional complaints, except as documented, Reports as per HPI, Reports dizziness, Reports otalgia, Reports headache(s), Reports sinus pain, Reports sinus pressure and Reports sore throat Cardiovascular Cardiovascular: Reports system reviewed and no additional complaints, except as documented and Reports as per HPI Respir
[2023-06-08 16:57] LABS: UTC Influenza A Antigen Negative (Negative); UTC Strep Screen (Rapid) Negative (Negative)
[2023-06-08 16:58] LABS: UTC Influenza B Antigen Negative (Negative)
[2023-06-08 17:09] VITALS: BP 110/86; PULSE 82; RESP 18; TEMP 37; O2SAT 99
== END 2023-06-08 17:40 | disposition home or self-care (01) ==
PROVIDERS: Emergency Provider Nurse Practitioner; PCP Nurse Practitioner Family
DX: J01.90 Acute sinusitis, unspecified (principal); R51.9 Headache, unspecified; R42 Dizziness and giddiness; R09.81 Nasal congestion; R09.82 Postnasal drip; R07.0 Pain in throat; H92.03 Otalgia, bilateral; F17.210 Nicotine dependence, cigarettes, uncomplicated; J45.909 Unspecified asthma, uncomplicated
CPT/HCPCS: 87804; 87880; 99212; 99214; G0463

== ENCOUNTER 2024-12-23 15:40 | Emergency (ER) | payer OTHER, SELFPAY ==
--- OUTSIDE RECORDS SUMMARY | 2024-11-14 04:30 | XMS_ITS | Continuity of Care Document ---
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 - Active BP Wash 2.5 % topical cleanser wash by topical route 2 times every day the affected area(s) 0.00 - Active Procedures Procedure Date Vitamin b12 injection THER/PROPH/DIAG INJ, SC/IM Advance Directives Directive Yes / No Effective Date File Name No Information Encounters Encounter Description Practice Location Reason(s) For Visit Diagnoses Date Provider [facility], [address] [place] [address], [address], tel:[phone] b[facility] injection (chief complaint) Vitamin B12 deficiency Juan Faustin. [address], [id number] , . [phone] [facility], [address] [place], [address], tel:[phone] [facility] b12 injection (chief complaint) Vitamin B12 deficiency Fe-0 6 5 Martinez Roxie. [address] [place], [place], [id number] , [place]. tel: [phone] [facility], [address] [place] [address], [facility], tel:[phone] [facility] [place] B12 injection (chief complaint) Vitamin B12 deficiency 0 2- 5 Martinez Roxie. [address] [place], [place], [id number] , [place]. tel: [phone] [facility], [address] [place] [address], [facility], tel:[phone] [facility] [place] B12 injection (chief complaint) Vitamin B12 deficiency May-0 4 Martinez Roxie. [address] [place], [place], [id number] , [place]. tel: [phone] [facility], [address] [place] [address], [facility], tel:[phone] [facility] [place] B12 INJECTION (chief complaint) Vitamin B12 deficiency 2 4 Martinez Roxie. [address] [place], [place], [id number] , [place]. tel: [phone] [facility], [address] [place] [address], [facility], [place] tel:[phone] [facility] [place] B12 injection (chief complaint) Flu Vaccine (chief complaint) Vitamin B12 deficiency Feb-2 4 Martinez Roxie. [address] [place], [place], [id number] , [place]. tel: [phone] [facility], [address] [place] [address], [facility], [place] tel:[phone] [facility] [place] akr wrist pain (chief complaint) Pain in left wristPain in right wristBody mass index [BMI] 21.0-21.9, adult Sep- 4 Martinez Roxie. [address] [place], [place], [id number] , [place]. tel:[phone] [facility], [address] [place] [address], [facility], tel:[phone] [facility] [place] MONTHLY B12 (chief complaint) Vitamin B12 deficiency 4 Martinez Roxie. [address] [place], [place], [id number] , [place]. tel: [phone] [facility], [address] [place] [address], [facility], tel:[phone] [facility] [place] monthly b12 injection (chief complaint) Depression Screening (chief complaint) Vitamin B12 deficiencyEncounter for screening for depression 4 Martinez Roxie. [address] [place], [place], [id number] , [place]. tel: [phone] [facility], [address] [place] [address], [facility], tel:[phone] [facility] [place] MONTHLY B12 (chief complaint) pH IMBALANCE (chief complaint) Sore Throat (chief complaint) VaginitisAcute pharyngitisVitamin B12 deficiencyBody mass index [BMI] 21.0-21.9, adult 4 Martinez Roxie. [address] [place], [place], [address] , [place]. tel: [phone] [facility], [address] [place] [address], [facility], [place] tel:[phone] [facility] [place] sore throat (chief complaint) Acute pharyngitisStreptococcal sore throatBody mass index [BMI] 21.0-21.9, adult 4 Martinez Roxie. [address] [place], [place], [id number] , [place]. tel:[phone] [facility], [address] [place] [address], [address], [place] tel:[phone] [facility] [place] B12 INJECTION (chief complaint) Vitamin B12 deficiency 4 Martinez Roxie. [address] [place], [place], [address] , [place]. tel:[phone] [facility], [address] [place] [address], [address], [place] tel:[phone] [facility] [place] f/u on acne (chief complaint) Acne vulgarisVitamin B12 deficiencyPain in right wristPain in left wristEncntr for poultry service technician exam (general) (routine) w/o abn findingsExtreme povertyUnderachievement in schoolStress, not elsewhere classified 4 Martinez Roxie. [address] [place], [place], [id number] , [place]. tel:[phone] [facility], [address] [place] [address], [address], [place] tel:[phone] [facility] [place] acne (chief complaint) Hands Swelling (chief complaint) Acne vulgarisPain in left wristPain in right wristVitamin B12 deficiencyGeneralized hyperhidrosisNicotine dependence in remission 4 Martinez Roxie. [address] [place], [place], [id number] , [place]. tel:[phone] [facility], [address] [place] [address], [address], [place] tel:[phone] [facility] [place] f/u smoking cessation (chief complaint) Acne vulgarisNicotine dependence, cigarettes, uncomplicatedGeneralized hyperhidrosisEncounter for immunization 3 Martinez Roxie. [address] [place], [place], [id number] , . tel: [phone] [facility], [address] [place], [address], [place] tel:[phone] [facility] Follow up on Labs (chief complaint) Acne vulgarisGeneralized hyperhidrosisPain in left wristPain in right wristVitamin B12 deficiencyNicotine dependence, cigarettes, uncomplicated 3 Juan Faustin. [address] [place], [place], [id number] , [place]. tel: [phone] [facility], [address] [place], [address], [place] tel:[phone] [facility] Establish Care (chief complaint) Encounter for screening for depressionEncounter for screening examination for other mental health and behavioral disordersNicotine dependence, cigarettes, uncomplicatedIrritable bowel syndromeAsthmaOther seasonal allergic rhinitisAnxiety disorder, unspecifiedPost-traumatic stress disorderDisorder of thyroid, unspecifiedEncounter for screening for diseases of the blood and blood-forming organs and certain disorders involving the immune mechanismEncounter for test, result negative 3 Martinezmichael Faustin. [address] [place], [place], [id number] , [place]. tel: [phone] Family History Family Member Type Diagnosis Age At Onset Maternal grandmother Problem (finding) Mother Problem Hypertension Brother Problem allergic to pet dander and used to have an addiction problem Mother Problem Arthritis Brother Problem Chrons disease, all but a quarter of his intestines have been removed Paternal grandfather Problem Alive and well Sister Problem Alive and well Mother Problem Irregular heart beat Father Problem Alcoholism Paternal grandmother Problem (finding) Sister Problem Diabetes mellitus Brother Problem Asthma Son Problem Alive and well Sister Problem Asthma Brother Problem Alive and well Father Problem Alive and well Maternal grandfather Problem (finding) Son Problem allergic to pet dander Mother Problem Alive and well Sister Problem neuropatht, dege nerative disc disease, gall bladder removed Son Problem Asthma Immunizations Vaccine Date Status Comments Influenza virus vaccine, trivalent (IIV3), split virus, preservative free, 0.5 mL dosage, for intramuscular use administered Source: Ne w Immunization Record Influenza Flulaval administered Source: N ew Immunization Record Meningococcal MPSV4 administered Source: Other Registry HPV4 (Gardasil) administered Source: [place] r Registry HPV4 (Gardasil) administered Source: [place] Registry Tdap, Adsorbed administered Source: Other Registry HPV4 (Gardasil) administered Source: [place] r Registry Polio-OPV (Trivalent) administered Source : Other Registry MMR administered Source: Other R egistry DTaP, UF administered Source: Other R egistry Payers Payer name Insurance type Covered libertarian ID Authoriza tion(s) [place]- Medicaid Aet[place] [facility] [place] [place] [id number] [facility]- Medicaid Aetna Wrap Payer [id number] [place]- Medicaid [place] [facility] [place] [place] [id number] [facility]- Medicaid Aetna Wrap Payer [id number] [facility]- Medicaid [place] [id number] [facility]- Medicaid Aetna Wrap Payer [id number] Social History Type Description Quantity Date Captured Comments Alcohol Use Details Unknown Caffeine Use Details Unknown Tobacco Use Status No Information Smoking Status No Information Sex Female Sexual Orientation Bisexual Gender Identity Female Chief Complaint And Reason For Visit From encounter dated '11/14/2024 08:30'. b12 injection (chief complaint). Description: Pt is here today to receive a B12 injection. Administered into left deltoid, pt tolerated well, band aide applied. Plan Of Treatment Date Type Action Status Goal Lipid panel. Due on 025 due Goal Hepatitis C Screening due Goal Obtain Height, W eight, and BMI. Due on due Goal Tobacco Use Scre ening. Due on due Goal Influenza vaccine. Due on No due Goal Diabetes screening. Due on O due Goal Follow up Plan f or abnormal BMI (Less than 18.5, greater than 25). Due on due Goal Vitamin B12. Due on 024 due Goal Vitamin D. Due on due Goal Tobacco screening. Due on due Goal Tobacco Use Cess ation Counseling. Due on due Goal Generalized Anxi ety Disorder - 7 (ELÍAS-7). Due on due Goal PAP. Due on due Goal CMP. Due on due Goal HPV testing. Due on 025 due Goal Pap/HPV testing. Due on due Goal TSH. Due on due Goal CBC. Due on due Goal Unhealthy drug use screening due Goal HIV screen due Goal Drug Abuse Scree efren Test (DAST-10). Due on due Goal Depression scree efren. Due on due Goal Tobacco Use Cess ation Counseling. Due on due Goal CMP. Due on due Goal CBC. Due on due Goal Drug Abuse Scree efren Test (DAST-10). Due on due Goal HIV screen due Goal Vitamin B12. Due on 024 due Goal Vitamin D. Due on 4 due Goal Follow up Plan f or abnormal BMI (Less than 18.5, greater than 25). Due on due Goal Pap/HPV testing. Due on due Goal Diabetes screening. Due on due Goal PAP. Due on due Goal Influenza vaccine. Due on due Goal Obtain Height, W eight, and BMI. Due on due Goal Tobacco Use Scre ening. Due on due Goal Hepatitis C Screening due Goal Depression scree efren. Due on due Goal TSH. Due on due Goal Unhealthy drug use screening due Goal Generalized Anxi ety Disorder - 7 (ELÍAS-7). Due on due Goal CMP. Due on due Goal CBC. Due on due Goal Depression scree efren. Due on due Goal Drug Abuse Scree efren Test (DAST-10). Due on due Goal Tobacco Use Cess ation Counseling. Due on due Goal HIV screen due Goal Vitamin D. Due on due Goal PAP. Due on due Goal Influenza vaccine. Due on due Goal Tobacco Use Scre ening. Due on due Goal Obtain Height, W eight, and BMI. Due on due Goal TSH. Due on due Goal Generalized Anxi ety Disorder - 7 (ELÍAS-7). Due on due Goal Unhealthy drug use screening due Goal Vitamin B12. Due on due Goal Follow up Plan f or abnormal BMI (Less than 18.5, greater than 25). Due on due Goal Diabetes screening. Due on due Goal Pap/HPV testing. Due on due Goal Hepatitis C Screening due Goal Pap/HPV testing. Due on due Goal CBC. Due on due Goal Influenza vaccine. Due on due Goal Drug Abuse Scree efren Test (DAST-10). Due on due Goal CMP. Due on due Goal PAP. Due on due Goal Generalized Anxi ety Disorder - 7 (ELÍAS-7). Due on due Goal Vitamin B12. Due on due Goal Vitamin D. Due on due Goal Tobacco Use Scre ening. Due on due Goal Obtain Height, W eight, and BMI. Due on due Goal Unhealthy drug use screening due Goal Tobacco Use Cess ation Counseling. Due on due Goal TSH. Due on due Goal Diabetes screening. Due on due Goal Follow up Plan f or abnormal BMI (Less than 18.5, greater than 25). Due on due Goal Depression scree efren. Due on due Goal HIV screen due Goal Hepatitis C Screening due Goal PAP. Due on due Goal Vitamin D. Due on due Goal Diabetes screening. Due on due Goal Follow up Plan f or abnormal BMI (Less than 18.5, greater than 25). Due on due Goal Unhealthy drug use screening due Goal Vitamin B12. Due on due Goal Tobacco Use Cess ation Counseling. Due on due Goal Obtain Height, W eight, and BMI. Due on due Goal Depression scree efren. Due on due Goal CMP. Due on due Goal HIV screen due Goal CBC. Due on due Goal Tobacco Use Scre ening. Due on due Goal Generalized Anxi ety Disorder - 7 (ELÍAS-7). Due on due Goal Hepatitis C Screening due Goal TSH. Due on due Goal Pap/HPV testing. Due on due Goal Drug Abuse Scree efren Test (DAST-10). Due on due Goal Influenza vaccine. Due on due Goal PAP. Due on due Goal Obtain Height, W eight, and BMI. Due on due Goal Influenza vaccine. Due on due Goal Vitamin D. Due on due Goal Hepatitis C Screening due Goal Drug Abuse Scree efren Test (DAST-10). Due on due Goal Tobacco Use Scre ening. Due on due Goal HIV screen due Goal TSH. Due on due Goal CMP. Due on due Goal Tobacco Use Cess ation Counseling. Due on due Goal Generalized Anxi ety Disorder - 7 (ELÍAS-7). Due on due Goal Diabetes screening. Due on due Goal Pap/HPV testing. Due on due Goal Depression scree efren. Due on due Goal Unhealthy drug use screening due Goal Follow up Plan f or abnormal BMI (Less than 18.5, greater than 25). Due on due Goal Vitamin B12. Due on due Goal CBC. Due on due Goal Vitamin D. Due on 4 due Goal Drug Abuse Scree efren Test (DAST-10). Due on due Goal Tobacco Use Scre ening. Due on due Goal Influenza vaccine. Due on due Goal Tobacco Use Cess ation Counseling. Due on due Goal Unhealthy drug use screening due Goal Generalized Anxi ety Disorder - 7 (ELÍAS-7). Due on due Goal CBC. Due on due Goal Pap/HPV testing. Due on due Goal Obtain Height, W eight, and BMI. Due on due Goal CMP. Due on due Goal TSH. Due on due Goal Depression scree efren. Due on due Goal HIV screen due Goal PAP. Due on due Goal Diabetes screening. Due on due Goal Vitamin B12. Due on 024 due Goal Hepatitis C Screening due Goal Lifestyle education regardin g diet completed Goal CBC. Due on due Goal Depression scree efren. Due on due Goal Follow up Plan f or abnormal BMI (Less than 18.5, greater than 25). Due on due Goal Drug Abuse Scree efren Test (DAST-10). Due on due Goal Diabetes screening. Due on due Goal Unhealthy drug use screening due Goal Hepatitis C Screening due Goal HIV screen due Goal CMP. Due on due Goal Tobacco Use Cess ation Counseling. Due on due Goal PAP. Due on due Goal TSH. Due on due Goal Tobacco Use Scre ening. Due on due Goal Vitamin D. Due on due Goal Pap/HPV testing. Due on due Goal Influenza vaccine. Due on No due Goal Vitamin B12. Due on due Goal Obtain Height, W eight, and BMI. Due on due Goal Generalized Anxi ety Disorder - 7 (ELÍAS-7). Due on due Goal Depression scree efren. Due on due Goal Unhealthy drug use screening due Goal Vitamin B12. Due on due Goal Tobacco Use Cess ation Counseling. Due on due Goal TSH. Due on due Goal Hepatitis C Screening due Goal Follow up Plan f or abnormal BMI (Less than 18.5, greater than 25). Due on due Goal Diabetes screening. Due on O due Goal Drug Abuse Scree efren Test (DAST-10). Due on due Goal HIV screen due Goal Generalized Anxi ety Disorder - 7 (ELÍAS-7). Due on due Goal CBC. Due on due Goal Tobacco Use Scre ening. Due on due Goal Obtain Height, W eight, and BMI. Due on due Goal Vitamin D. Due on due Goal Pap/HPV testing. Due on due Goal Influenza vaccine. Due on No due Goal PAP. Due on due Goal CMP. Due on due Goal Hepatitis C Screening due Goal TSH. Due on due Goal Tobacco Use Scre ening. Due on due Goal HIV screen due Goal Obtain Height, W eight, and BMI. Due on due Goal Tobacco Use Cess ation Counseling. Due on due Goal Vitamin B12. Due on 024 due Goal CMP. Due on due Goal Generalized Anxi ety Disorder - 7 (ELÍAS-7). Due on due Goal PAP. Due on due Goal Vitamin D. Due on due Goal Pap/HPV testing. Due on due Goal Influenza vaccine. Due on No due Goal CBC. Due on due Goal Diabetes screening. Due on O due Goal Follow up Plan f or abnormal BMI (Less than 18.5, greater than 25). Due on due Goal Unhealthy drug use screening due Goal Depression scree efren. Due on due Goal Drug Abuse Scree efren Test (DAST-10). Due on due Goal Lifestyle education regardin g diet completed Goal HIV screen due Goal Hepatitis C Screening due Goal Influenza vaccine. Due on No due Goal Tobacco Use Cess ation Counseling. Due on due Goal Depression scree efren. Due on due Goal Pap/HPV testing. Due on due Goal Vitamin D. Due on due Goal Tobacco Use Scre ening. Due on due Goal Obtain Height, W eight, and BMI. Due on due Goal Vitamin B12. Due on due Goal PAP. Due on due Goal CMP. Due on due Goal Generalized Anxi ety Disorder - 7 (ELÍAS-7). Due on due Goal Unhealthy drug use screening due Goal CBC. Due on due Goal Diabetes screening. Due on due Goal TSH. Due on due Goal Drug Abuse Scree efren Test (DAST-10). Due on due Goal Lifestyle education regardin g diet completed Goal Tobacco Use Scre ening. Due on due Goal Tobacco Use Cess ation Counseling. Due on due Goal CBC. Due on due Goal CMP. Due on due Goal Generalized Anxi ety Disorder - 7 (ELÍAS-7). Due on due Goal TSH. Due on due Goal Follow up Plan f or abnormal BMI (Less than 18.5, greater than 25). Due on due Goal Depression scree efren. Due on due Goal Vitamin B12. Due on due Goal Pap/HPV testing. Due on due Goal PAP. Due on due Goal HIV screen due Goal Unhealthy drug use screening due Goal Hepatitis C Screening due Goal Obtain Height, W eight, and BMI. Due on due Goal Vitamin D. Due on due Goal Influenza vaccine. Due on due Goal Drug Abuse Scree efren Test (DAST-10). Due on due Goal Diabetes screening. Due on due Goal CBC. Due on due Goal Diabetes screening. Due on due Goal CMP. Due on due Goal Pap/HPV testing. Due on due Goal Hepatitis C Screening due Goal Unhealthy drug use screening due Goal Vitamin B12. Due on due Goal TSH. Due on due Goal Depression scree efren. Due on due Goal Tobacco Use Scre ening. Due on due Goal Tobacco Use Cess ation Counseling. Due on due Goal Vitamin D. Due on due Goal Generalized Anxi ety Disorder - 7 (ELÍAS-7). Due on due Goal PAP. Due on due Goal Influenza vaccine. Due on No due Goal Obtain Height, W eight, and BMI. Due on due Goal Drug Abuse Scree efren Test (DAST-10). Due on due Goal HIV screen due Goal Unhealthy drug use screening due Goal TSH. Due on due Goal Influenza vaccine. Due on due Goal CBC. Due on due Goal Tobacco Use Scre ening. Due on due Goal Vitamin B12. Due on due Goal Drug Abuse Scree efren Test (DAST-10). Due on due Goal PAP. Due on due Goal Depression scree efren. Due on due Goal Hepatitis C Screening due Goal Follow up Plan f or abnormal BMI (Less than 18.5, greater than 25). Due on due Goal Generalized Anxi ety Disorder - 7 (ELÍAS-7). Due on due Goal CMP. Due on due Goal Obtain Height, W eight, and BMI. Due on due Goal Vitamin D. Due on due Goal HIV screen due Goal Diabetes screening. Due on due Goal Obtain Height, W eight, and BMI. Due on due Goal Diabetes screening. Due on due Goal HIV screen due Goal Depression scree efren. Due on due Goal CMP. Due on due Goal TSH. Due on due Goal Vitamin B12. Due on due Goal Generalized Anxi ety Disorder - 7 (ELÍAS-7). Due on due Goal Influenza vaccine. Due on No due Goal Vitamin D. Due on due Goal PAP. Due on due Goal CBC. Due on due Goal Drug Abuse Scree efren Test (DAST-10). Due on due Goal Tobacco Use Scre ening. Due on due Goal Tobacco Use Cess ation Counseling. Due on due Goal Unhealthy drug use screening due Goal Hepatitis C Screening due Goal Drug Abuse Scree efren Test (DAST-10). Due on due Goal PAP. Due on due Goal Diabetes screening. Due on O due Goal CMP. Due on due Goal Vitamin D. Due on due Goal Unhealthy drug use screening due Goal Generalized Anxi ety Disorder - 7 (ELÍAS-7). Due on due Goal Tobacco Use Scre ening. Due on due Goal Tobacco Use Cess ation Counseling. Due on due Goal Hepatitis C Screening due Goal CBC. Due on due Goal Influenza vaccine. Due on due Goal Obtain Height, W eight, and BMI. Due on due Goal TSH. Due on due Goal Vitamin B12. Due on due Goal Follow up Plan f or abnormal BMI (Less than 18.5, greater than 25). Due on due Goal HIV screen due Goal Depression scree efren. Due on due Goal Tobacco cessation counseling completed Goal Generalized Anxi ety Disorder - 7 (ELÍAS-7). Due on due Goal Tobacco Use Scre ening. Due on due Goal Drug Abuse Scree efren Test (DAST-10). Due on due Goal Vitamin D. Due on due Goal Diabetes screening. Due on O due Goal Unhealthy drug use screening due Goal TSH. Due on due Goal Follow up Plan f or abnormal BMI (Less than 18.5, greater than 25). Due on due Goal CMP. Due on due Goal CBC. Due on due Goal Vitamin B12. Due on due Goal Influenza vaccine. Due on Oc due Goal Obtain Height, W eight, and BMI. Due on due Goal PAP. Due on due Goal Depression scree efren. Due on due Goal Tobacco Use Cess ation Counseling. Due on due Goal Hepatitis C Screening due Goal HIV screen due Referral Referred To: [facility] Ordered: Referrals: Dermatology. [facility]. Location: [place]. Evaluate and treat Appointment date/timeframe: 01/10/2024 ordered [facility]. Evaluate and treat Appointment date/timeframe: 11/22/2023 ordered Future Order: Lab Order SURESWAB , VAGINOSIS/VAGINITIS PLUS ([id number]), Collected on: , Sent on: Sent Future Order: Lab Order THINPREP TIS PAP & HPV mRNA E6/E7 RFLX HPV 16,18/45 ([id number]), Collected on: , Sent on: Sent History Of Present Illness Encounter Date Complaint History Of Prese nt Illness b12 injection Pt is here today to receive a B12 injection. Administered into left deltoid, pt tolerated well, band aide applied. b12 injection Ramone is here tod ay to receive her monthly b12 injection. Administered into right deltoid. Pt tolerated well, band aide applied. B12 injection Ramone is here tod ay to receive her monthly b12 injection. Administered B12 1000 mcg/mL into right deltoid. Pt tolerated well, band aide applied. Pt is scheduled to rtc in 1 month for next monthly b12 injection. B12 injection Ramone is here thi s morning to recevie her monthly b12 injection. Administered b12 into right deltoid, pt tolerated well, band aid applied. B12 INJECTION RAMONE IS HERE THI S MORNING TO RECEIVE HER MONTHLY B12 INJECTION. ADMINISTERED INTO RIGHT DELTOID. PT TOLERATED WELL, BAND AID APPLIED. B12 injection Ramone is here thi s morning to receive her monthly b12 injection. Administered into right deltoid. Pt tolerated well, band aid applied. Flu Vaccine Ramone is here thi s morning to receive a flu vaccine. Administered influenza vaccine afluria, 0.5 mL, Lot# [id number], Exp: 11.15.24, into left deltoid. Pt tolerated well, band aid applied. kar wrist pain Ramone is here tod ay for f/u on kar wrist pain.She was able to complete her EMG/nerve conduction testing ordered by Dr. Quinonez- No electrodiagnostic evidence of focal nerve entrapment, cervical radiculopathy, myopathy or generalized peripheral neuropathy in either upper extremity.She has been sleeping w/ cock-up splints provided by orthopedics.Today she reports continued pain, after excessive repetitive motions/use.Stiffeness in the morning, sharp pain in wrist/1st digits with twisting.She was advised to take tylenol for pain as per packing instructions, both diclofenac gel, and arthritic creams were given to pt to try for analgesic relief. She voiced understanding.Heat application for stiffness, alternated w/ cold therapy for pain.She will start PT as instructed per Ortho. MONTHLY B12 RAMONE IS HERE TO RECEIVE HER MONTHLY B12. ADMINISTERED IN LEFT DELTOID, BAND AID APPLIED. monthly b12 injection monthly b1 2 injection Depression Screening Depression Screening completed during today's visit. Patient scored 10 on the PHQ9. Provider notified of patients score. Sore Throat Onset: 3 Days. T he severity of the problem is moderate. The problem has worsened. Additional information: PT reports that she did not finish the last 3 days of her last antibiotic from the last time that she had strep. MONTHLY B12 Ramone is here tod ay to receive her monthly b12 injection. Administered into right deltoid. Pt tolerated well, band aid applied. Pt is scheduled in 1 month to rtc for next monthly b12 injection pH IMBALANCE Pt states that l ast week that she began to get irritation again in her vaginal area. Pt reports it as burning and itching.uses sex toysone partnerdenies sti LNMP 3 weeks agowhite vaginal discharge sore throat Onset: 3 Days. T he severity of the problem is moderate. The problem has worsened. The symptoms are persistent. Symptoms are associated with history of allergies and recent travel. Symptoms are not associated with dental infection, exposure to strep, history of asthma, recent cold and sick family member. The patient denies aggravating factors. Associated symptoms include cough (dry), fatigue, headache and pharyngitis. Pertinent negatives include chills/rigors, dyspnea, facial pain, fever or nasal congestion. B12 INJECTION RAMONE IS HERE TOD AY TO RECEIVE HER MONTHLY B12 INJECTION. ADMINISTERED INTO RT DELTOID, PT TOLERATED WELL, BAND AID APPLIED. PT IS SCHEDULED TO RTC IN 1 MONTH FOR NEXT MONTHLY B12. f/u on acne Ramone is a 27 yo female here today for f/u on recent acne treatment.Ramone reports she completed Cephadoxil 500 mg bid x 2 weeks, missed about 3 days, but is currently finishing the last week of anbx. She reports she is still has about 5 days left. Acne has greatly improved. She is encouraged to continue to wash daily with benzyl peroxide and use the metrogel, as well as a moisturizer such as cervae, aquafore, or aveeno. She would still like a referral to Dermatology to see if she can be completely acne free. She also reported she had a yeast infection on 09/21/23 which medication was called in for her. Today that has resolved.She is due for her pap- WIll completed todaydenies problemsPeriod regular- last was last weekIs sexually activeBil wrist pain continues- numbness when sleeping. She is using cock-up splints to sleep.Would like a referral to Dr. Quinonez in [place] to r/o carpal tunnel.Current on flu vaccine Hands Swelling Pt has been wear ing braces on bilateral wrist at night due to waking up with bilateral pain in wrist. Pt reports that when she wakes up after using the braces, her hands are numb. The same thing happens when she goes to sleep with her watch on. The watch is lose during the day but really tight when she wakes up. acne The client prese nts with acne that began gradually. The problem is moderate and worsened. Area(s) affected include the buttocks, arm(s), back, chest, face and neck. Relevant history positive for family history of depression, family history of nodulocystic acne and sensitive skin. The client denies history of liver disease, history of renal disease, previously taken Accutane , hysterectomy and control. Aggravating factors include cosmetics, menstrual cycle and stress. Symptoms are relieved by OTC products. Symptoms are not relieved by oral antibiotics, oral contraceptives and topical medication. Associated symptoms include dry skin, oily skin, scarring and sensitive skin. Pertinent negatives include pruritus and skin cracking. f/u smoking cessation Ramone is he re today for f/u on medicationshe started chnatix- reports is doing well, down to 5 cigarettes a daySpirolactolone doing well, skin is clearing upShe states it has not affected her excessive sweating. Will start glycopyrrolateflu vaccine todaydeclines b12 injection Follow up on Labs Ramone is here t deyanira to follow up on recent lab results.overall labs are wnlB12 is low- will start oral supplementation as pt declines injections.Acne on face and backHas been ongoing since pubertyHas used proactive- but too expensiveWill try spironactolone- start 25 mg dailyPt reports having excessive sweating on kar palms, feet and axillawrist aches and popsWorks at BonzerDarg out- pole routine- lots of lifting on her wristtylenol for [id number] / digits are going numb- sleeping wakes up with digits numbdeclines ortho eval at this time possible carpal tunnel- [facility] cessationwelbutrion made her very irritable and angrysmoking morewill try chantix Establish Care Ramone is here thi s afternoon as a new patient to establish care. Pt previously seen Dr. Loyola. She is wishing to seek treatment today for her Thyroid. Her provider before [facility] found that she has an over active Thyroid- she has not seen him in 2 years. She was last seen a a [facility] in [place], but does not recall the full name. Pt stated that at the time of dx she didn't do anything about it because it kept her thin but now she is realizing that it causes other issues. States she had a neg work up for rheumatoid arthritis.States she is unable to gain weight. Has excessively sweaty hands and feet. She also reports she has very high anxietyPTSD- witnessed her neighbors burn up in a house fireThinks she may have some ADHD but has not been diagnosedShe does have an appt w/ Kinza Parmar the of this month.LNMP: 929.23- was about 1 week earlyhcg neg hereperiods regular lasting 5-7 dayshx of mammogram for left breast pain-per pt report benignHx of asthma- has rescue inhaler but has not used in over 1 yearseasonal allergies, non-medicatedIBSNicotine dependent- smoking 1/4 of a pack daily as well as vaping 1 cartridge every 2 weeks 5% nicotinesmoking cessationshe does not have any teethKasper had nothing to report Instructions Date Instruction Additional Infor mation May use heat or ice application to affected joints 20-30 minutes, 3-4 x daily. Use whichever gives most comfort.May take OTC tylenol for pain control as per packing instructions.Daily low impact exercise of at least 30 minutes, five days weekly recommended. Related to Pain in right wrist May use heat or ice application to affected joints 20-30 minutes, 3-4 x daily. Use whichever gives most comfort.May take OTC tylenol for pain control as per packing instructions.Daily low impact exercise of at least 30 minutes, five days weekly recommended. Related to Pain in left wrist Giving encouragement to exercise Related to Body mass index [BMI] 21.0-21.9, adult Lifestyle education regarding di et Related to Body mass index [BMI] 21.0-21.9, adult Patient counseled on doing warm salt water gargles, completing any and all medications prescribed, may use OTC analgesics as needed. Related to Acute pharyngitis B-12 injection given in office today. Eat foods rich in B-12. Additional oral B12 replacement if indicated. Related to Vitamin B12 deficiency If you frequently jain ve bacterial vaginosis, do not soak in tub baths. You may take Florastor daily (an over the counter probiotic). Wear white cotton underwear. Do not use perfumed soaps or feminine deodorants. STD check today, use safe sex practices. Make sure to thoroughly clean all sex toys with 99% rubbing alcohol and dry well. Daily Florastore may be beneficial as well to keep pH balance normal. Related to Vaginitis Giving encouragement to exercise Related to Body mass index [BMI] 21.0-21.9, adult Lifestyle education regarding di et Related to Body mass index [BMI] 21.0-21.9, adult Take all antibiotics until complete. May take with food to ease stomach irritation. If you experience frequent yeast infections, you may consider taking an OTC probiotic like culturell or align while taking antibiotics, or eating yogurt (daily) with active cultures. Related to Acute pharyngitis Patient counseled on doing warm salt water gargles, completing any and all medications prescribed, may use OTC analgesics as needed. Related to Streptococcal sore throat Giving encouragement to exercise Related to Body mass index [BMI] 21.0-21.9, adult Lifestyle education regarding di et Related to Body mass index [BMI] 21.0-21.9, adult B-12 injection given in office today. Eat foods rich in B-12. Additional oral B12 replacement if indicated. Related to Vitamin B12 deficiency Congratulations stop ping smoking!Keep up the good work! 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 You should be able to place 2 fingers in brace easily. If numbness occurs, loosen brace. Related to Pain in right wrist B-12 injection given in office today. Eat foods rich in B-12. Additional oral B12 replacement if indicated.Montly B12 Related to Vitamin B12 deficiency Start using Benzoyl Peroxide 2.5% bid to wash affected areasMay use metrogel 1% bid- if drying occurs reduce to once dailyTake Cephadoxil 500 mg bid x 1 week- may repeat up to 3 weeks based on response to medication. Related to Acne vulgaris Continue to use brac es- make sure they are not too tight. You should be able to place 2 fingers in brace easily. If numbness occurs, loosen brace. 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 If needed you may take tylenol per packing instructions Related to Encounter for immunization continue spironactol onecontinue good hygiene Related to Acne vulgaris It is recommended to stop smoking/vaping to increase overall health and decrease risk of cardiovascular disease. If you wish to stop smoking/vaping, there is a free online Tippo from smoking course offered through our local health department. You may call [phone] for more information.Continue on chantixRTC 3 months as needed Related to Nicotine dependence, cigarettes, uncomplicated Use Cock-up Splints at nightConsider Ortho referral, possible EMG Related to Pain in left wrist It is recommended to stop smoking/vaping to increase overall health and decrease risk of cardiovascular disease. If you wish to stop smoking/vaping, there is a free online Tippo from smoking course offered through our local health department. You may call [phone] for more information.Use nicotine patches as instructed.Start Chantix as instructed. Stop Welbutrin.RTC 2 weeks Related to Nicotine dependence, cigarettes, uncomplicated Wash your face KAR w ith acne soap like Neutrogena or CerevaStart taking sprionactolone dailyRTC 2 weeks f/u medication Related to Acne vulgaris It is recommended to stop smoking/vaping to increase overall health and decrease risk of cardiovascular disease. If you wish to stop smoking/vaping, there is a free online Tippo from smoking course offered through our local health department. You may call [phone] for more information.Use nicotine patches as instructed.Start buproprion SR 150 mg once daily x 7 days, then increase to two times dailyRTC 2 weeks for f/uTake your depression/anxiety medications as instructed. Do not stop them abruptly. Monitor your symptoms around the 2nd week of medication. If you have suicidal or homicidal ideation, and feel you might act on them, go to the ER. Call me if this occurs. Related to Nicotine dependence, cigarettes, uncomplicated Use your maintainenc e inhaler daily as instructed. Always rinse your mouth out with water after each use. Monitor for thrush infections. Identify asthma triggers and avoid them. Monitor for worsening of symptoms. Related to Asthma Eat a high fiber t. Decrease stress when able. Increase the amount of water you consume, at least 8 8 oz. glasses daily. Exercise daily 3-5 times weekly. Avoid gaseous causing foods, avoid fried, greasy fatty foods, avoid dairy. Related to Irritable bowel syndrome [facility] to get records from Dr. Loyola's office Related to Disorder of thyroid, unspecified Assessments Type Assessment Date assessment Vitamin B12 deficiency
[2024-12-23 15:49] VITALS: BP 111/74; PULSE 68; RESP 22; TEMP 37.1; O2SAT 100; BMI 22.6
--- NOTE | 2024-12-23 15:49 | ECG_ITS ---
APPROVED REPORT Exam: Resting ECG HR:69 bpm ECG Measurements Heart Rate 69 AXES DC 102 P 27 QRSd 97 QRS 91 QT 410 T 61 QTc 429 Conclusion SINUS RHYTHM WITH SHORT DC INTERVAL No acute STEMI Electronically signed by : DANETTE BRIGGS, 12/24/2024 00:06:27
--- NOTE | 2024-12-23 16:04 | ED_ITS ---
<Statement entered by Kelsy Wiggins DO - 12/23/24 20:13> I was consulted by the MAISHA, and we discussed the complexity of the problems being addressed. I approved the treatment and management plan for this patient's care in the emergency department, thus performing a substantive portion of the medical decision making. Kelsy Wiggins DO Discharge Plan Disposition Patient Disposition: Home, Self-Care Condition: Good Prescriptions Prescriptions: No Action fluconazole [Diflucan] 150 mg tablet 150 mg PO Q3D 0 Days Qty: 2 0RF Rx Instructions: may repeat second dose 72 hrs after first dose if symptoms persist methylprednisolone [Medrol (Hima)] 4 mg tablets,dose pack See Rx Instructions .Route .COMPLEX 6 Days Qty: 21 0RF Rx Instructions: taper pack; amoxicillin-pot clavulanate 875-125 mg Tablet 1 tab PO Q12H 7 Days Qty: 14 0RF Referrals Follow up/Referrals: Roxie Martinez APRN [Primary Care Provider, Medical] - See instructions Activity Restrictions/Add. Instructions Additional Instructions/Restrictions: Please follow-up with your PCP in the upcoming days, please return to the emergency department any worsening signs or symptoms. Clinical Impressions Clinical Impression: Numbness and tingling Instructions Patient Instructions: DI for Numbness/Tingling Print Language Print Language: Sami Discharge ED Provider: Kelsy Wiggins General Adult HPI <CARMEN Diane - Last Filed: 12/23/24 16:39> General Chief complaint: Weakness Stated complaint: Numbness on left side Time Seen by Provider: 12/23/24 15:50 Mode of Arrival: Ambulatory Source of Information: Patient Description of Symptoms (Recalled from ER Triage Doc. by RN): pt presents to ED with c/o left sided numbness and tingiling. pt reports that she awoke around 9 am she was laying on her right side but left side become numb and tingle. 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 History of Present Illness HPI narrative: 29-year-old female presents to the emergency department with left-sided numbness and tingling that started around 9 AM this morning when she awoke, she states she was lying on her right side, but then her entire left side starting to have numbness and tingling , left upper extremity, and left lower extremity as well as her left side of her abdomen was tingling , she denies any fever chills chest pain shortness of breath nausea vomiting constipation diarrhea no dizziness no headache, no neck pain, no abdominal pain, no urinary type symptomatology, no current numbness or tingling, no upper or lower extremity weakness, no saddle anesthesia, she is current with a smoker, she denies any alcohol or drug use, initial triage vitals are unremarkable. 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 Onset (ago): hour(s) Related Data Previous Rx's ?Medication ?Instructions ?Recorded fluconazole 150 mg tablet 150 mg PO Q3D 2 doses #2 tab s 03/05/23 (Diflucan) amoxicillin 875 mg-potassium 1 tab PO Q12H 7 days #14 tabs 06/08/23 clavulanate 125 mg tablet methylprednisolone 4 mg tablets in See Rx Instructions .Route 06/08/23 a dose pack (Medrol (Hima)) .COMPLEX 6 days #21 tabs Allergies Allergy/AdvReac Type Severity Reaction Status Date / Time estradiol (ESTRADIOL) Allergy Unknown Verified 03/05/23 09:54 ethinyl estradiol (From Allergy Unknown Verified 03/05/23 09:54 ORTHO EVRA) norelgestromin (From ORTHO Allergy Unknown Verified 03/05/23 09:54 EVRA) [facility] <CARMEN Diane - Last Filed: 12/23/24 16:39> [facility] Disclaimer: The information contained in this section may have been updated after the patient was seen, as this information can be updated by other users. Medical History Asthma Surgical History History of section Family History (Updated 03/05/23 @ 09:55 by Alex Brandon) Other No significant family history Social History Smoking Status: Current every day smoker tobacco type: cigarettes packs per day: 1 second hand exposure: Yes alcohol intake: never substance use type: denies use current occupational status: other Travel in the last 8 weeks?: None household members: family and children housing: house current occupational exposures/hazards: No Have you lived/traveled outside US in past 30 days?: No Contact w/someone who lives/traveled outside US past 30 days?: No Exposure to someone with infectious disease in past 14 days?: No Do you have a fever (greater than 100.4 F or 38 C)?: No Have you tested positive for COVID-19?: No Exposed to someone with COVID-19 in past 14 days?: No Do you have a sore throat?: No Do you have a cough?: No Do you have any weakness?: No Do you have any diarrhea?: No Are you experiencing any unusual bleeding?: No Do you have any muscle aches/pain?: No Do you have any abdominal pain?: No Are you experiencing loss of taste or smell?: No Other Medical History Have you received the Flu Vaccine for this season: No Have you received the Pneumonia Vaccine: No <CARMEN Diane - Last Filed: 12/23/24 16:39> ROS Obtained: Yes All systems reviewed & no additional complaints except as documented Physical Exam <CARMEN Diane - Last Filed: 12/23/24 16:39> General General appearance: alert and in no apparent distress Head Head exam: atraumatic and normocephalic Eye Eye exam: Present PERRL and EOMI ENT ENT exam: Present mucous membranes moist Neck Neck exam: Present normal inspection Chest Chest inspection: Present normal inspection and symmetric chest wall rise Respiratory Respiratory exam: Present normal lung sounds bilaterally; Absent respiratory distress Cardiovascular Cardiovascular exam: Present regular rate and normal rhythm Abdominal Exam Abdominal exam: Present soft; Absent tenderness, guarding, rebound or rigidity Extremities Exam Extremities exam: Present normal inspection Neurological Exam Neurological exam: Present alert, oriented X3 and other (Patient has 5 out of 5 strength in bilateral lower and upper extremities, no gross sensation deficit, moves extremities to command, NIH 0.); Absent motor sensory deficit Psychiatric Psychiatric exam: Present normal affect Skin Skin exam: Present warm and dry Medical Decision Making <CARMEN Diane - Last Filed: 12/23/24 16:39> Medical Records Medical records reviewed: Yes I reviewed the patient's medical records. Screening: Per USPSTF and CDC recommendations, given the prevalence of disease in our region, it is our hospital?s policy to screen for HIV and viral Hepatitis for all patients aged 18 and over and those with ongoing risk factors. Rudy Inquiry Pt receiving controlled substance: No Rudy was queried for this patient: No Vital Signs: 12/23/24 15:49 Temperature 98.8 F Temperature Source Oral Pulse Rate [Left Radial] 68 Respiratory Rate 22 Blood Pressure [Right Arm] 111/74 Blood Pressure Mean [Right Arm] 86 02 Sat by Pulse Oximetry 100 Lab Data Lab results reviewed: Yes I reviewed the patient's lab results. Lab Results 12/23/24 15:54: WBC 7.3, RBC 4.19 L, Hgb 13.2, Hct 38.7, MCV 92.4, MCH 31.5 H, MCHC 34.1, RDW 12.5, Plt Count 207, MPV 10.7 H, Neut % (Auto) 67.7, Lymph % (Auto) 26.0, Grayson % (Auto) 5.0, Eos % (Auto) 0.8, Baso % (Auto) 0.4, Neut # (Auto) 5.0, Lymph # (Auto) 1.9, Grayson # (Auto) 0.4, Eos # (Auto) 0.1, Baso # (Auto) 0.0, Sodium 138, Potassium 3.2 L, Chloride 105, Carbon Dioxide 23, Anion Gap 13.2, BUN 8, Creatinine 0.70, Estimated Creat Clear 118, Estimated GFR 98, Est GFR ( Amer) 119, Glucose 108 H, Calcium 9.1, Magnesium 1.8, Total Bilirubin 0.4, AST 23, ALT 16, Alkaline Phosphatase 47, Troponin I < 0.01, N T-Pro-B Natriuret Pep 131 H, Total Protein 7.5, Albumin 4.9, Globulin 2.6, A lbumin/Globulin Ratio 1.9 H 12/23/24 15:54 12/23/24 15:54 Orders (Tests/Meds): ED MEDICATIONS Discontinued Medications Generic Name Dose Route Start Last Admin Trade Name Freq PRN Reason Stop Dose Admin Potassium Chloride 40 meq 12/23/24 16:31 Potassium Chloride 20meq Tab PO 12/23/24 16:32 ONCE ONE ORDERS Category Date Time Status Complete Blood Count Auto Diff Stat Lab 12/23/24 15:54 Completed Comprehensive Metabolic Panel Stat Lab 12/23/24 15:54 Completed Magnesium Stat Lab 12/23/24 15:54 Completed NT Pro Brain Natriuretic Pep. Stat Lab 12/23/24 15:54 Completed Troponin I Q3H Lab 12/23/24 19:00 Ordered Troponin I Q3H Lab 12/23/24 22:00 Ordered Troponin I Stat Lab 12/23/24 15:54 Completed Medical Decision Narrative: 29-year-old female presents the emergency department with left-sided numbness and tingling that is resolved, differential diagnosis include but not limited to Anny reaction, panic attack, ACS, electrolyte disturbance, among others. I discussed patient case with attending physician Will obtain basic laboratory studies, EKG, magnesium level proBNP troponin. Will forego any neuroimaging as patient currently NIH of 0, currently at her neurological baseline, extremities to command, I did offer CT Noncon/other neuroimaging to the patient at bedside, patient denied at this time, shared decision-making was utilized, thus will forego neuroimaging at this time as patient is stable, no focal neurological deficit, currently asymptomatic with NIH of 0, all risk and benefits of not obtaining neuroimaging were discussed with the patient and family at the bedside patient family elected to proceed. CBC is unremarkable CMP is noted for mild hypokalemia at 3.2, otherwise unremarkable. Will give 40 mg p.o. potassium. Troponin is within normal limits at less than 0.01 proBNP is mildly elevated 131, otherwise unremarkable CMP. I discussed the results with the patient at the bedside, patient is in agreement with the current discharge plan/treatment plan, patient is NIH of 0, currently asymptomatic, she does note having some anxiety this morning and throughout the day, and is quite tearful, states that she will follow-up with her PCP, could be anxiety type reaction versus other musculoskeletal cause of her numbness and tingling, patient was given strict ED return precautions. Patient voiced understanding and agreement with current treatment plan/discharge plan. <Kelsy Wiggins, DO - Last Filed: 12/23/24 16:36> Vital Signs: 12/23/24 15:49 Temperature 98.8 F Temperature Source Oral Pulse Rate [Left Radial] 68 Respiratory Rate 22 Blood Pressure [Right Arm] 111/74 Blood Pressure Mean [Right Arm] 86 02 Sat by Pulse Oximetry 100 Lab Data Lab Results 12/23/24 15:54: WBC 7.3, RBC 4.19 L, Hgb 13.2, Hct 38.7, MCV 92.4, MCH 31.5 H, MCHC 34.1, RDW 12.5, Plt Count 207, MPV 10.7 H, Neut % (Auto) 67.7, Lymph % (Auto) 26.0, [place] % (Auto) 5.0, Eos % (Auto) 0.8, Baso % (Auto) 0.4, Neut # (Auto) 5.0, Lymph # (Auto) 1.9, Grayson # (Auto) 0.4, Eos # (Auto) 0.1, Baso # (Auto) 0.0, Sodium 138, Potassium 3.2 L, Chloride 105, Carbon Dioxide 23, Anion Gap 13.2, BUN 8, Creatinine 0.70, Estimated Creat Clear 118, Estimated GFR 98, Est GFR ( Amer) 119, Glucose 108 H, Calcium 9.1, Magnesium 1.8, Total Bilirubin 0.4, AST 23, ALT 16, Alkaline Phosphatase 47, Troponin I < 0.01, N T-Pro-B Natriuret Pep 131 H, Total Protein 7.5, Albumin 4.9, Globulin 2.6, A lbumin/Globulin Ratio 1.9 H Orders (Tests/Meds): ED MEDICATIONS Discontinued Medications Generic Name Dose Route Start Last Admin Trade Name Freq PRN Reason Stop Dose Admin Potassium Chloride 40 meq 12/23/24 16:31 Potassium Chloride 20meq Tab PO 12/23/24 16:32 ONCE ONE ORDERS Category Date Time Status Complete Blood Count Auto Diff Stat Lab 12/23/24 15:54 Completed Comprehensive Metabolic Panel Stat Lab 12/23/24 15:54 Completed Magnesium Stat Lab 12/23/24 15:54 Completed NT Pro Brain Natriuretic Pep. Stat Lab 12/23/24 15:54 Completed Troponin I Q3H Lab 12/23/24 19:00 Ordered Troponin I Q3H Lab 12/23/24 22:00 Ordered Troponin I Stat Lab 12/23/24 15:54 Completed ECG Data Tracing #1: I reviewed this ECG and interpreted as documented below: Sinus rhythm with a ventricular to [address] changes concerning for STEMI. Borderline right axis deviation. ECG initial impression date: 12/23/24 ECG initial impression time: 15:51 Critical Care <CARMEN Diane - Last Filed: 12/23/24 16:39> Critical Care Time Critical Care Time: No
[2024-12-23 16:07] LABS: Hematocrit 38.7 % (37.0-47.0); Hemoglobin 13.2 g/dL (12.2-16.2); Immature Granulocytes % 0.1 %; Mean Corpuscular HGB Conc 34.1 g/dL (31.8-35.4); Mean Corpuscular Hemoglobin 31.5 pg (27.0-31.2); Mean Corpuscular Volume 92.4 fl (81-99); Nucleated Red Blood Cells % 0 %; Platelet Count 207 K/mm3 (142-424); Red Blood Count 4.19 M/mm3 (4.20-5.40); Red Cell Distribution Width-SD 42.5 fL; White Blood Count 7.3 K/mm3 (4.8-10.8)
[2024-12-23 16:13] LABS: Albumin Level 4.9 g/dl (3.5-5.0); Chloride 105 mmol/L (98-107); Sodium 138 mmol/L (136-145)
[2024-12-23 16:14] LABS: Potassium 3.2 mmoL/L (3.5-5.1)
[2024-12-23 16:16] LABS: Alanine Aminotransferase 16 U/L (12-78); Albumin/Globulin Ratio 1.9 (1.1-1.8); Anion Gap 13.2 mEq/L (5-15); Aspartate Amino Transferase 23 U/L (14-36); Blood Urea Nitrogen 8 mg/dl (7-17); Carbon Dioxide 23 mmol/L (22.0-30.0); Creatinine Clearance Estimated 118 mL/min (50-200); Creatinine,Serum 0.70 mg/dl (0.52-1.04); Estimated Glomerular Filt Rate 98 ml/min (>60); GFR (African American) 119 ML/MIN (>60); Globulin 2.6 g/dL (1.3-3.2); Total Protein,Serum 7.5 g/dl (6.3-8.2)
[2024-12-23 16:17] LABS: Alkaline Phosphatase 47 U/L (38-126); Bilirubin,Total 0.4 mg/dl (0.2-1.3); Calcium 9.1 mg/dl (8.4-10.2); Glucose 108 mg/dl (74-100); Magnesium 1.8 mg/dl (1.6-2.3)
[2024-12-23 16:26] LABS: NT Pro Brain Natriuretic Pep. 131 pg/mL (0-125)
[2024-12-23 16:32] LABS: Troponin I < 0.01 ng/ml (0.00-0.034)
[2024-12-23] MEDS: POTASSIUM CHLORIDE 20MEQ TAB 40 MEQ PO (16:43)
[2024-12-23 16:49] VITALS: BP 114/72; PULSE 67; RESP 16; TEMP 36.6; O2SAT 98
== END 2024-12-23 16:49 | disposition home or self-care (01) ==
PROVIDERS: Physician Assistant; Emergency Provider Emergency Medicine; PCP Nurse Practitioner Family
DX: R20.2 Paresthesia of skin (principal); E87.6 Hypokalemia
CPT/HCPCS: 80053; 83735; 83880; 84484; 85025; 93005; 99283

== ENCOUNTER 2025-01-05 01:06 | Emergency (ER) | payer OTHER, SELFPAY ==
--- OUTSIDE RECORDS SUMMARY | 2024-11-14 04:30 | XMS_ITS | Continuity of Care Document ---
Author Organization [facility] Address [address] [place] [address] Phone Care Team Providers Care Communications Supervisor Name Role Phone Juan HONG, LIME MIXER TENDER, Roxie Unavailable Unavai lable Allergies, Adverse Reactions, [...] Location Reason(s) For Visit Diagnoses Date Provider [facility], [address] [place] [address], [address], tel:[phone] [facility] b12 injection (chief complaint) Vitamin B12 deficiency Juan Faustin. [address] [place], [place], [id number] , . [phone] [facility], [address] [place], [address], tel:[phone] [facility] [place] b12 injection (chief complaint) Vitamin B12 deficiency Fe-0 6 5 Martinez Roxie. [address] [place], [place], [id number] , [place]. tel: [phone] [facility], [address] [place] [address], [facility], tel:[phone] [facility] [place] B12 injection (chief complaint) Vitamin B12 deficiency 0 2- 5 Martinez Roxie. [address] [place], [place], [id number] , [place]. tel: [phone] [facility], [address] [place] [address], [facility], tel:[phone] [facility] [place] B12 injection (chief complaint) Vitamin B12 deficiency May-0 4 Martinez Roxie. [address] [place], [place], [id number] , [place]. tel: [phone] [facility], [address] [place] [address], [facility], tel:[phone] [facility] [place] B12 INJECTION (chief complaint) Vitamin B12 deficiency 2 4 Martinez Roxie. [address] [place], [place], [id number] , [place]. tel: [phone] [facility], [address] [place] [address], [facility], [place] tel:[phone] [facility] [place] B12 injection (chief complaint) Flu Vaccine (chief complaint) Vitamin B12 deficiency Feb-2 4 Martinez Roxie. [address] [place], [place], [id number] , [place]. tel: [phone] [facility], [address] [place] [address], [facility], [place] tel:[phone] [facility] [place] kar wrist pain (chief complaint) Pain in left wristPain in right wristBody mass index [BMI] 21.0-21.9, adult Sep- 4 Martinez Roxie. [address] [place], [place], [id number] , [place]. tel:[phone] [facility], [address] [place] [address], [facility], tel:[phone] [facility] [place] MONTHLY B12 (chief complaint) Vitamin B12 deficiency 4 Martinez Roxie. [address] [place], [place], [id number] , [place]. tel: [phone] [facility], [address] [place] [address], [facility], tel:[phone] [facility] [place] monthly b12 injection (chief complaint) Depression Screening (chief complaint) Vitamin B12 deficiencyEncounter for screening for depression 4 Martinez Roxie. [address] [place], [place], [id number] , [place]. tel: [phone] [facility], [address] [place] [address], [facility], tel:[phone] [facility] [place] MONTHLY B12 (chief complaint) pH IMBALANCE (chief complaint) Sore Throat (chief complaint) VaginitisAcute pharyngitisVitamin B12 deficiencyBody mass index [BMI] 21.0-21.9, adult 4 Martinez Roxie. [address] [place], [place], [id number] , [place]. tel: [phone] [facility], [address] [place] [address], [facility], [place] tel:[phone] [facility] [place] sore throat (chief complaint) Acute pharyngitisStreptococcal sore throatBody mass index [BMI] 21.0-21.9, adult 4 Martinez Roxie. [address] [place], [place], [id number] , [place]. tel:[phone] [facility], [address] [place] [address], [address], [place] tel:[phone] [facility] [place] B12 INJECTION (chief complaint) Vitamin B12 deficiency 4 Martinez Roxie. [address] [place], [place], [id number] , [place]. tel:[phone] [facility], [address] [place] [address], [address], [place] tel:[phone] [facility] [place] f/u on acne (chief complaint) Acne vulgarisVitamin B12 deficiencyPain in right wristPain in left wristEncntr for medical equipment technician exam (general) (routine) w/o abn findingsExtreme povertyUnderachievement in schoolStress, not elsewhere classified 4 Martinez Roxie. [address] [place], [place], [id number] , [place]. tel:[phone] [facility], [address] [place] [address], [address], [place] tel:[phone] [facility] [place] acne (chief complaint) Hands Swelling (chief complaint) Acne vulgarisPain in left wristPain in right wristVitamin B12 deficiencyGeneralized hyperhidrosisNicotine dependence in remission 4 Martinez Roxie. [address] [place], [place], [id number] , [place]. tel:[phone] [facility], [address] [place] [address], [address], [place] tel:[phone] [facility] [place] f/u smoking cessation (chief complaint) Acne vulgarisNicotine dependence, cigarettes, uncomplicatedGeneralized hyperhidrosisEncounter for immunization 3 Martinez Roxie. [address] [place], [place], [id number] , . tel: [phone] [facility], [address] [place], [address], [place] tel:[phone] [facility] Follow up on Labs (chief complaint) Acne vulgarisGeneralized hyperhidrosisPain in left wristPain in right wristVitamin B12 deficiencyNicotine dependence, cigarettes, uncomplicated 3 Juan Faustin. [address] [place], [place], [id number] , [place]. tel: [phone] [facility], [address] [place], [address], [place] tel:[phone] [facility] GABRIELCAREY Establish Care (chief complaint) Encounter for screening for depressionEncounter for screening examination for other mental health and behavioral disordersNicotine dependence, cigarettes, uncomplicatedIrritable bowel syndromeAsthmaOther seasonal allergic rhinitisAnxiety disorder, unspecifiedPost-traumatic stress disorderDisorder of thyroid, unspecifiedEncounter for screening for diseases of the blood and blood-forming organs and certain disorders involving the immune mechanismEncounter for test, result negative 3 Martinezmichael Faustin. [address] [place], [place], [id number] , [place]. tel: [phone] Family History Family Member Type Diagnosis Age [...] egistry Payers Payer name Insurance type Covered democrat ID Authoriza tion(s) [facility]- Medicaid [employer] [facility] [place] [place] [id number] [facility]- Medicaid A[employer]na Wrap Payer [id number] [facility]- Medicaid [employer] [facility] [place] [place] [id number] [facility]- Medicaid [employer] Wrap Payer [id number] [facility]- Medicaid [employer] [place] [id number] [facility]- Medicaid [employer] W[employer] Payer [id number] Social History Type Description Quantity Date Captured [...] Goal Influenza vaccine. Due on due Goal Diabetes screening. Due [...] on due Goal HPV testing. Due on due Goal Pap/HPV testing. Due [...] screen due Goal Vitamin B12. Due on due Goal Hepatitis C Screening due Goal Vitamin D. Due on due Goal Diabetes screening. Due on due Goal CBC. Due on due Goal TSH. Due on due Goal Depression scree efren. Due on due Goal CMP. Due on due Goal PAP. Due on due Goal Pap/HPV testing. Due on due Goal Obtain Height, W eight, and BMI. Due on due Goal Generalized Anxi ety Disorder - 7 (ELÍAS-7). Due on due Goal Tobacco Use Scre ening. Due on due Goal Tobacco Use Cess ation Counseling. Due on due Goal Unhealthy drug use screening due Goal Influenza vaccine. Due on due [...] Goal Vitamin D. Due on due Goal Follow up Plan f or abnormal BMI (Less than 18.5, greater than 25). Due on due Goal Pap/HPV testing. Due on due Goal Diabetes screening. Due on O due Goal PAP. Due on due Goal Influenza vaccine. Due on Se due Goal Obtain Height, W eight, and BMI. Due on due Goal Tobacco Use Scre ening. Due on due Goal Hepatitis C Screening due Goal Depression scree efren. Due on due Goal TSH. Due on due Goal Unhealthy drug use screening due Goal Generalized Anxi ety Disorder - 7 (ELÍAS-7). Due on due Goal Generalized Anxi ety Disorder - 7 (ELÍAS-7). Due on due Goal Unhealthy drug use screening due Goal Vitamin B12. Due on 024 due Goal Follow up Plan f or abnormal BMI (Less than 18.5, greater than 25). Due on due Goal Diabetes screening. Due on O due Goal Pap/HPV testing. Due on due Goal Hepatitis C Screening due Goal CMP. Due on due Goal CBC. Due on due Goal Depression scree efren. Due on due Goal Drug Abuse Scree efren Test (DAST-10). Due on due Goal Tobacco Use Cess ation Counseling. Due on due Goal HIV screen due Goal Vitamin D. Due on due Goal PAP. Due on due Goal Influenza vaccine. Due on Se -26-2025 due Goal Tobacco Use Scre ening. Due [...] Diabetes screening. Due on O due Goal Pap/HPV testing. Due on due Goal Depression scree efren. Due on due Goal Unhealthy drug use screening due Goal Vitamin B12. Due on due Goal CBC. Due on due Goal PAP. Due on due Goal Obtain Height, W eight, and BMI. Due on due Goal Influenza vaccine. Due on No due Goal Vitamin D. Due on due Goal Hepatitis C Screening due Goal Lifestyle education regardin g diet completed Goal Vitamin D. Due on due Goal Drug Abuse Scree efren Test (DAST-10). Due on due Goal Follow up Plan f or abnormal BMI (Less than 18.5, greater than 25). Due on due Goal Tobacco Use Scre [...] Goal Vitamin B12. Due on due Goal Hepatitis C Screening due Goal Pap/HPV testing. Due on due Goal Diabetes screening. Due on due Goal TSH. Due on due Goal Unhealthy drug use screening due Goal Hepatitis C Screening due Goal Generalized Anxi ety Disorder - 7 (ELÍAS-7). Due on due Goal Tobacco Use Cess ation Counseling. Due on due Goal Vitamin D. Due on due Goal CMP. Due on due Goal HIV screen due Goal PAP. Due on due Goal Depression scree efren. Due on due Goal Drug Abuse Scree efren Test (DAST-10). Due on due Goal Influenza vaccine. Due on due Goal Vitamin B12. Due on due Goal CBC. Due on due Goal Tobacco Use Scre ening. Due on due Goal Obtain Height, W eight, and BMI. Due on due Goal Follow up Plan f or abnormal BMI (Less than 18.5, greater than 25). Due on due Goal Depression scree efren. Due on due Goal Unhealthy drug use screening due Goal Vitamin B12. Due on 024 due Goal Tobacco Use Cess ation Counseling. Due on due Goal TSH. Due on due Goal Hepatitis C Screening due Goal Follow up Plan f or abnormal BMI (Less than 18.5, greater than 25). Due on due Goal Diabetes screening. Due on due Goal Drug Abuse Scree [...] due Goal CMP. Due on due Goal Lifestyle education regardin g diet completed Goal Hepatitis C Screening due Goal TSH. Due on due Goal Tobacco Use Scre ening. Due on due Goal HIV screen due Goal Obtain Height, W eight, and BMI. Due on due Goal Tobacco Use Cess ation Counseling. Due on due Goal Vitamin B12. Due on due Goal CMP. Due on [...] greater than 25). Due on due Goal TSH. Due on due Goal Drug Abuse Scree efren Test (DAST-10). Due on due Goal Depression scree efren. Due on due Goal Generalized Anxi ety Disorder - 7 (ELÍAS-7). Due on due Goal Tobacco Use Scre ening. Due on due Goal HIV screen due Goal Tobacco Use Cess ation Counseling. Due on due Goal Influenza vaccine. Due on due Goal TSH. Due on due Goal Vitamin D. Due on due Goal Obtain Height, W eight, and BMI. Due on due Goal CMP. Due on due Goal PAP. Due on due Goal Diabetes screening. Due on due Goal Unhealthy drug use screening due Goal Pap/HPV testing. Due on due Goal Drug Abuse Scree efren Test (DAST-10). Due on due Goal Vitamin B12. Due on due Goal CBC. Due on due Goal Hepatitis C Screening due Goal TSH. Due on due Goal Vitamin B12. Due on due Goal Hepatitis C Screening due Goal HIV screen due Goal Follow up Plan f or abnormal BMI (Less than 18.5, greater than 25). Due on due Goal CMP. Due on due Goal Vitamin D. Due on due Goal Depression scree efren. Due on due Goal Tobacco Use Scre ening. Due on due Goal CBC. Due on due Goal Influenza vaccine. Due on No due Goal Generalized Anxi ety Disorder - 7 (ELÍAS-7). Due on due Goal Obtain Height, W eight, and BMI. Due on due Goal Diabetes screening. Due on O due Goal Drug Abuse Scree efren Test (DAST-10). Due on due Goal Unhealthy drug use screening due Goal PAP. Due on due Goal [...] Goal HIV screen due Referral [facility]: [facility] Ordered[facility] Evaluate and treat Appointment date/timeframe: 11/22/2023 ordered Referral Referred To: [facility] Ordered: Referrals: Dermatology. [facility]. Location: [place]. Evaluate and treat Appointment date/timeframe: 01/10/2024 ordered Future Order: Lab Order SURESWAB , VAGINOSIS/VAGINITIS PLUS ([id number]), Collected on: , Sent on: Sent Future Order: Lab Order THINPREP TIS PAP & HPV mRNA E6/E7 RFLX HPV 16,18/45 ([id number]), Collected on: , Sent on: Sent History [...] Administered influenza vaccine afluria, 0.5 mL, Lot# [id number], Exp: 11.15.24, into left deltoid. Pt tolerated [...] the PHQ9. Provider notified of patients score. pH IMBALANCE Pt states that l ast week that she began to get irritation again in her vaginal area. Pt reports it as burning and itching.uses sex toysone partnerdenies sti LNMP 3 weeks agowhite vaginal discharge MONTHLY B12 Ramone is here tod ay to receive her monthly b12 injection. Administered into right deltoid. Pt tolerated well, band aid applied. Pt is scheduled in 1 month to rtc for next monthly b12 injection Sore Throat Onset: 3 Days. T he severity of the problem is moderate. The problem has worsened. Additional information: PT reports that she did not finish the last 3 days of her last antibiotic from the last time that she had strep. sore throat Onset: 3 Days. T he [...] like a referral to Dr. Quinonez in [place] to r/o carpal tunnel.Current on flu vaccine acne The client prese nts with acne [...] Pertinent negatives include pruritus and skin cracking. Hands Swelling Pt has been wear ing [...] but really tight when she wakes up. f/u smoking cessation Ramone is he re [...] feet and axillawrist aches and popsWorks at evly out- pole routine- lots of lifting on her wristtylenol for uupa2bc / digits are going numb- sleeping wakes up with digits numbdeclines ortho eval at this time possible carpal tunnel- [facility] cessationwelbutrion made her very irritable and angrysmoking [...] a a diabetes and family practice in [place], but does not recall the full name. [...] stop smoking/vaping, there is a free online [place] from smoking course offered through our local health department. You may call [phone] for more information.Continue on chantixRTC 3 months as needed Related to Nicotine dependence, cigarettes, uncomplicated Use Cock-up Splints at nightConsider Ortho referral, possible EMG Related to Pain in left wrist It is recommended to stop smoking/vaping to increase overall health and decrease risk of cardiovascular disease. If you wish to stop smoking/vaping, there is a free online [place] from smoking course offered through our local health department. You may call [phone] for more information.Use nicotine patches as instructed.Start [...] stop smoking/vaping, there is a free online [place] from smoking course offered through our local health department. You may call [phone] for more information.Use nicotine patches as instructed.Start [...] Irritable bowel syndrome Fasting [facility] from Dr. Loyola's office Related to Disorder of thyroid, unspecified Assessments Type Assessment Date assessment Vitamin B12 deficiency
--- NOTE | 2025-01-05 01:12 | [facility].EDGENADL ---
Discharge Plan Disposition Patient Disposition: Home, Self-Care Prescriptions Prescriptions: New nitrofurantoin macrocrystal 100 mg capsule 100 mg PO BID 5 Days Qty: 10 0RF Rx Instructions: must administer with a meal/food No Action fluconazole [Diflucan] 150 mg tablet 150 mg PO Q3D 0 Days Qty: 2 0RF Rx Instructions: may repeat second dose 72 hrs after first dose if symptoms persist methylprednisolone [Medrol (Hima)] 4 mg tablets,dose pack See Rx Instructions .Route .COMPLEX 6 Days Qty: 21 0RF Rx Instructions: taper pack; amoxicillin-pot clavulanate 875-125 mg Tablet 1 tab PO Q12H 7 Days Qty: 14 0RF Referrals Follow up/Referrals: Roxie Martinez APRN [Primary Care Provider, Medical] - See instructions Activity Restrictions/Add. Instructions Additional Instructions/Restrictions: Please take antibiotics as prescribed for treatment of urinary tract infection. Please follow-up with your primary care provider. Please return to the emergency department if you develop any new or worsening symptoms or become concerned for your health. Clinical Impressions Clinical Impression: UTI (urinary tract infection) Qualifiers: Urinary tract infection type: acute cystitis Instructions Patient Instructions: DI for Urinary Tract Infection (UTI), DI for Urinary Tract Infection in Children Print Language Print Language: Romanian Discharge ED Provider: Humberto Aguilar General Adult HPI General Chief complaint: Urogenital-Female Stated complaint: poss uti, blood in urine Time Seen by Provider: 01/05/25 01:12 History of Present Illness HPI narrative: 29-year-old female without significant past medical history presents for concern for UTI. She reports she has had some burning with urination and some blood in the urine starting earlier today. Reports some suprapubic discomfort, otherwise denies any flank pain fever or systemic symptoms. Is concerned for . Related Data Previous Rx's ?Medication ?Instructions ?Recorded fluconazole 150 mg tablet 150 mg PO Q3D 2 doses #2 tabs 03/05/23 (Diflucan) amoxicillin 875 mg-potassium 1 tab PO Q12H 7 days #14 tabs 06/08/23 clavulanate 125 mg tablet methylprednisolone 4 mg tablets in See Rx Instructions .Route 06/08/23 a dose pack (Medrol (Hima)) .COMPLEX 6 days #21 tabs nitrofurantoin macrocrystal 100 mg 100 mg PO BID 5 days #10 caps 07/21/25 capsule Allergies Allergy/AdvReac Type Severity Reaction Status Date / Time estradiol (ESTRADIOL) Allergy Unknown Verified 03/05/23 09:54 ethinyl estradiol (From Allergy Unknown Verified 03/05/23 09:54 ORTHO EVRA) norelgestromin (From ORTHO Allergy Unknown Verified 03/05/23 09:54 EVRA) [facility] Disclaimer: The information contained in this section may have been updated after the patient was seen, as this information can be updated by other users. Medical History Asthma Surgical History History of section Family History (Updated 03/05/23 @ 09:55 by Alex Brandon) Other No significant family history Social History Smoking Status: Current every day smoker tobacco type: cigarettes packs per day: 1 second hand exposure: Yes alcohol intake: never substance use type: denies use current occupational status: other Travel in the last 8 weeks?: None household members: family and children housing: house current occupational exposures/hazards: No Have you lived/traveled outside [place] in past 30 days?: No Contact w/someone who lives/traveled outside US past 30 days?: No Exposure to someone with infectious disease in past 14 days?: No Do you have a fever (greater than 100.4 F or 38 C)?: No Have you tested positive for COVID-19?: No Exposed to someone with COVID-19 in past 14 days?: No Do you have a sore throat?: No Do you have a cough?: No Do you have any weakness?: No Do you have any diarrhea?: No Are you experiencing any unusual bleeding?: No Do you have any muscle aches/pain?: No Do you have any abdominal pain?: No Are you experiencing loss of taste or smell?: No Other Medical History Have you received the Flu Vaccine for this season: No Have you received the Pneumonia Vaccine: No ROS Obtained: Yes All systems reviewed & no additional complaints except as documented Physical Exam General General appearance: alert and in no apparent distress Head Head exam: atraumatic and normocephalic Eye Eye exam: Present normal appearance, PERRL and EOMI ENT ENT exam: Present normal oropharynx and normal external ear exam Neck Neck exam: Present normal inspection and full ROM Chest Chest inspection: Present normal inspection and symmetric chest wall rise; Absent tenderness Respiratory Respiratory exam: Present normal lung sounds bilaterally; Absent respiratory distress Cardiovascular Cardiovascular exam: Present regular rate and normal rhythm Abdominal Exam Abdominal exam: Present soft; Absent distention, tenderness or guarding Extremities Exam Extremities exam: Present normal inspection; Absent edema or joint swelling Back Exam Back exam: Present normal inspection; Absent tenderness Neurological Exam Neurological exam: Present alert and oriented X3; Absent motor sensory deficit Psychiatric Psychiatric exam: Present normal affect and normal mood Skin Skin exam: Present warm, dry and normal color Lymphatic Lymphatic Findings: no adenopathy Medical Decision Making Medical Records Medical records reviewed: Yes I reviewed the patient's medical records. Screening: Per USPSTF and CDC recommendations, given the prevalence of disease in our region, it is our hospital?s policy to screen for HIV and viral Hepatitis for all patients aged 18 and over and those with ongoing risk factors. Rudy Inquiry Pt receiving controlled substance: No Rudy was queried for this patient: No Vital Signs: 01/05/25 01:17 Temperature 98.1 F Temperature Source Oral Pulse Rate [Left] 75 Respiratory Rate 14 Blood Pressure [Right Arm] 121/73 Blood Pressure Mean [Right Arm] 89 Blood Pressure Source [Right Arm] Automatic Cuff Blood Pressure Position [Right Arm] Sitting 02 Sat by Pulse Oximetry 100 Oxygen Delivery Method Room Air Lab Data Lab results reviewed: Yes I reviewed the patient's lab results. Lab Results 01/05/25 01:13: Urine Color Yellow, Urine Appearance Clear, Urine pH 7.0, Ur Specific [place] 1.015, Urine Protein 1+ A, Urine Glucose (UA) 0, Urine Ketones 0, Urine Blood 3+ A, Urine Nitrate Negative, Urine Bilirubin Negative, Urine Urobilinogen 0.2, Ur Leukocyte Esterase 2+ A, Urine RBC 10-20, Urine WBC 20-50, Ur Squamous Epith Cells Occasional, Urine Bacteria 1+, Urine HCG, Qual Negative Orders (Tests/Meds): ED MEDICATIONS Generic Name Dose Route Start Last Admin Trade Name Freq PRN Reason Stop Dose Admin Nitrofurantoin Macrocrystals 100 mg 01/05/25 02:20 Nitrofurantoin 100mg Capsule PO 01/05/25 02:21 ONCE ONE ORDERS Category Date Time Status HIV Combo Stat Lab 01/05/25 01:23 Ordered Hepatitis C Ab Qual. W/ RFX Stat Lab 01/05/25 01:23 Ordered UA [Urinalysis and Microscopic] Stat Lab 01/05/25 01:13 Completed Urine Chlam/Gono/Trich, STEPHANIE Stat Lab 01/05/25 01:30 Received Urine , HCG Qual. Stat Lab 01/05/25 01:13 Completed Urine Culture Stat Micro 01/05/25 01:13 Received Medical Decision Narrative: 29-year-old female presents for concern for UTI. History was obtained via interactive discussion with patient. On arrival, patient is [afebrile, hemodynamically stable, satting appropriately, alert, oriented x4, GCS 15], moving all extremities spontaneously. Full physical exam performed and significant for no flank pain Differential includes but is not limited to UTI, pyelonephritis, STI. Workup initiated including UA, urine , STI. On re-evaluation, patient [remains afebrile, HD stable.] Laboratory workup independently interpreted by me and significant for negative urine , urine consistent with urinary tract infection. Given patient history, exam and workup, patient's presentation most likely represents urinary tract infection. Patient was given Macrobid in the ER and discharged with prescription for Macrobid for treatment. Return precautions given.. Procedures Risk/Benefits of Procedure(s) Were Explained: Yes Critical Care Critical Care Time Critical Care Time: No
[2025-01-05 01:17] VITALS: BP 121/73; PULSE 75; RESP 14; TEMP 36.7; O2SAT 100; BMI 21.7
[2025-01-05 01:19] LABS: Microscopic, Urine URINE MICROSCOPIC (MICROSCOPIC)
[2025-01-05 01:38] LABS: Urine Pregnancy, HCG Qual. Negative (Negative)
[2025-01-05 02:13] VITALS: PULSE 69; O2SAT 98
[2025-01-05 02:15] VITALS: PULSE 64; O2SAT 98
[2025-01-05 02:15] LABS: Color,Urine Yellow (Yellow); PH,Urine 7.0 (5.0-8.5); Protein,Urine 1+ (Negative); Specific Gravity, Urine 1.015 (1.005-1.030)
[2025-01-05 02:16] LABS: Bilirubin,Urine Negative (Negative); Glucose,Urine (UA) 0 (Negative); Ketones,Urine 0 (Negative); Leukocyte Esterase,Urine 2+ (Negative); Urobilinogen,Urine 0.2 EU/dl (0.2)
[2025-01-05 02:19] LABS: Bacteria,Urine 1+ /lpf; Squamous Epithelial Cell,Urine Occasional #/hpf (0-5); WBC,Urine 20-50 #/hpf (0-3)
[2025-01-05] MEDS: NITROFURANTOIN 100MG CAPSULE 100 MG PO (02:29)
[2025-01-05 02:33] VITALS: BP 118/72; PULSE 64; RESP 14; TEMP 36.7; O2SAT 98
== END 2025-01-05 02:34 | disposition home or self-care (01) ==
PROVIDERS: Emergency Provider Emergency Medicine; PCP Nurse Practitioner Family
DX: N39.0 Urinary tract infection, site not specified (principal)
CPT/HCPCS: 81001; 81025; 87077; 87086; 87491; 87591; 87661; 99283